=== PATIENT | female | born 1950 | race Caucasian/White ===

== ENCOUNTER 2018-01-05 19:05 | Emergency (ER) | payer MEDICARE, OTHER, SELFPAY ==
[2018-01-05] VITALS (46 sets, daily range): BP systolic 138–174; BP diastolic 52–83; PULSE 56–78; RESP 10–22; TEMP 36.6–36.7; O2SAT 92–99
--- NOTE | 2018-01-05 19:35 | ED.GENADUL_ITS ---
Disposition Clinical Impression: Epigastric abdominal pain, Back pain Disposition: HOME Condition: Improving Instructions: Back Pain (ED), Epigastric Pain (ED) Additional Instructions: Drink plenty of fluids and get plenty of rest. Avoid any alcohol or marijuana use for the next few days. Take Pepcid twice daily for the next 2 weeks. Follow-up with your primary care doctor within the next week. Return to the emergency department with any worsening or new concerning symptoms. Prescriptions: Famotidine [Pepcid] 20 mg PO BID 14 Days tab Medical Decision Making - Lab Data Laboratory Tests 01/05/18 01/05/18 01/05/18 19:15 19:15 22:30 WBC 8.16 RBC 4.60 Hgb 13.8 Hct 41.1 MCV 89.3 MCH 30.0 MCHC 33.6 RDW 12.5 Plt Count 274 MPV 10.7 Immature Gran % 0.2 Neutrophils % 54.3 Lymphocytes % 27.6 Monocytes % 10.7 Eosinophils % 6.0 Basophils % 1.2 Absolute Neutrophils 4.43 Absolute Lymphocytes 2.25 Absolute Monocytes 0.87 H Absolute Eosinophils 0.49 Absolute Basophils 0.10 Sodium 140 Potassium 4.1 Chloride 104 Carbon Dioxide 29.0 Anion Gap 7.0 BUN 13 Creatinine 1.02 Estimated GFR/1.73 m2 53.73 Glucose 100 Calcium 8.6 Magnesium 2.0 Total Bilirubin 0.3 AST 13 L ALT 24 Alkaline Phosphatase 76 Troponin I < 0.02 < 0.02 Total Protein 7.5 Albumin 3.7 Lipase 100 01/05/18 1912: 61 bpm[address] Sinus. No acute ST elevation or depression. - Radiology Data Radiology results: report reviewed, image reviewed Chest with IV contrast: Negative CT abdomen and pelvis with IV contrast: Negative - Medical Decision Making 1904 -- 67-year-old female with a history of hypertension who presents with epigastric and right upper quadrant pain with radiation up her chest to the right side of her neck and to her back since 1 hour prior to arrival. Denies shortness of breath, nausea, vomiting or dizziness. No relief with Mylanta. Pain currently 7/10. Patient admitted to drinking a bottle of champagne and smoking marijuana last night. Vitals within normal limits. She has tenderness to palpation in the epigastric and right upper quadrants. EKG negative for acute findings. Differential diagnosis includes gastritis, peptic ulcer disease, cholecystitis, WI, dissection. Will do a cardiac workup, LFTs, lipase, CT chest abdomen and pelvis and give a GI cocktail. 2019 -- patient feels much better. States her pain is currently 2/10. 2144 -- CT reviewed and negative. As patient had epigastric and right upper quadrant tenderness, I suspect more of an abdominal pathology rather than cardiac. Patient declines any admission to the hospital. She is agreeable to stay for a second troponin. Patient has been reading a book in the ED and appears in no acute distress. 2309 --second troponin negative. She had some O2 saturation readings in the low to mid 90s which were when patient was sleeping. When awake and talking 96- 97% on room air. Patient denies any chest or abdominal pain. Patient still admitting to some midline back pain states that is mild at 2/10. Patient states she would like to go home. She was again offered admission but declines. Reexamination of abdomen still noted mild epigastric and right upper quadrant tenderness. Discussed with patient that as her abdomen has been tender and improved after GI cocktail, her cardiac workup thus far is negative, and she drank a large amount of alcohol last night that she is not accustomed to , her symptoms could certainly be due to GI pathology such as gastritis and she is agreeable. HEART score low risk. Will give dose of Pepcid here. Patient instructed to follow-up with her primary care doctor in 1 week and return here if worse. History of Present Illness - General Chief complaint: Chest Pain Stated complaint: CHEST PAINS Time Seen by Provider: 01/05/18 19:06 Source: patient Mode of arrival: ambulatory Limitations: no limitations - History of Present Illness Initial comments: Patient is a 67-year-old female who presents to the ER with complaint of epigastric and right upper quadrant pain since 1 hour prior to arrival. States the symptoms started when she was sitting at home reading a book. States the pain feels intermittent, sharp with radiation to her back straight upper chest and into her neck. She denies any aggravating or alleviating factors. She took Mylanta without relief. States the pain is currently 7/10. She denies shortness of breath, nausea, vomiting or dizziness. Patient admits to drinking a bottle of champagne and smoking marijuana last night which is unusual for her. She does admit to a previous cardiac cath 3 years ago which was negative. She admits to a previous history of similar symptoms as today a few years ago which was due to low potassium. States she has been taking all her medications as directed including her spironolactone and Norvasc. She admits to mainly feeling tired at this time. - Related Data Timolol Maleate [TIMOLOL MAL 0.25%] 1 drp OP BID drp 05/21/16 Spironolactone 25 mg PO DAILY #90 tab-cap 10/08/16 Amlodipine Besylate 5 mg PO DAILY #90 tab-cap 01/14/17 PARoxetine [Paxil] 40 mg PO DAILY #90 tab-cap 06/20/17 Zaleplon [Sonata] 1 tab PO HS PRN #90 tab 06/24/17 Atorvastatin Calcium 10 mg PO DAILY #90 tab-cap 11/14/17 Famotidine [Pepcid] 20 mg PO BID 14 Days tab 01/05/18 Allergies Allergy/AdvReac Type Severity Reaction Status Date / Time losartan [Losartan] AdvReac Intermediate COUGH Unverified 01/05/18 19:27 oxycodone AdvReac Intermediate NAUSEA Unverified 01/05/18 19:27 lisinopril AdvReac Mild cough Unverified 01/05/18 19:27 Review of Systems Constitutional: denies: chills, fever Eyes: denies: eye pain ENT: denies: ear pain, dental pain Respiratory: denies: cough, shortness of breath Cardiovascular: chest pain. denies: dyspnea on exertion Gastrointestinal: abdominal pain. denies: nausea, vomiting, diarrhea Genitourinary: denies: urgency, dysuria, frequency Musculoskeletal: denies: back pain Skin: denies: rash, lesions Neurological: denies: headache, weakness, numbness Past Medical History - Past Medical History Medical history: hypertension Surgical history: hysterectomy, other (Bilateral total knee replacement, carpal tunnel release) Family history: no significant family history - Social History Smoking status: never smoker Alcohol use: occasionally Drug use: marijuana (Occasionally) General Exam - General Limitations: no limitations General appearance: alert, in no apparent distress - Eye Eye exam: Present: EOMI - Respiratory Respiratory exam: Present: normal lung sounds bilaterally. Absent: respiratory distress, wheezes, rales, rhonchi, stridor - Cardiovascular Cardiovascular Exam: Present: regular rate, normal rhythm. Absent: bradycardia , tachycardia - GI/Abdominal GI/Abdominal exam: Present: soft, tenderness (Moderate epigastric and right upper quadrant tenderness.), normal bowel sounds. Absent: distended, guarding, rebound, rigid - Neurological Exam Neurological exam: Present: alert, oriented X3 - Psychiatric Psychiatric exam: Present: normal affect - Skin Skin exam: Present: warm, dry, intact Course Vital Signs - 24 hr 01/05/18 19:05 Temperature 98.1 F Pulse 62 Respiratory 18 Rate Blood Pressure 174/60 Pulse Oximetry 96
[2018-01-05 19:51] LABS: Abs Immature Grans 0.02 k/cumm (0.0-0.09); Absolute Eosinophil Count 0.49 k/cumm (0.0-0.7); Absolute Lymphocyte Count 2.25 k/cumm (1.2-3.4); Absolute Monocyte Count 0.87 k/cumm (0.11-0.7); Absolute Neutrophil Count 4.43 k/cumm (1.2-6.7); Basophils % 1.2; HCT 41.1 % (36.0-46.0); HGB 13.8 g/dL (12.0-15.5); Immature Grans % 0.2; Lymphocytes % 27.6; Mean Corp. HGB Concentration 33.6 g/dL (32.0-36.0); Mean Corpuscular Volume 89.3 fL (80-95); Mean Platelet Volume 10.7 fL (8.0-11.0); Monocytes % 10.7; Neutrophils % 54.3; Platelet Count 274 x1000/uL (130-400); RBC Distribution Width 12.5 % (11.7-14.6); White Blood Cell Count 8.16 k/cumm (4.4-10.8)
[2018-01-05 20:00] LABS: ALT 24 U/L (12-78); AST 13 U/L (15-37); Albumin 3.7 g/dL (3.4-5.0); Alkaline Phosphatase 76 U/L (46-116); BUN 13 mg/dL (7-18); Bilirubin, Total 0.3 mg/dL (0.2-1.0); CREATININE 1.02 mg/dL (0.55-1.02); Calcium 8.6 mg/dL (8.5-10.1); Chloride 104 mmol/L (98-107); Estimated GFR 53.73 (mL/min/1.73m2); Glucose 100 mg/dL (70-100); Lipase 100 U/L (73-393); Potassium 4.1 mmol/L (3.5-5.1); Sodium 140 mmol/L (136-145); Total Protein 7.5 g/dL (6.4-8.2)
[2018-01-05 20:12] LABS: Troponin I < 0.02 ng/mL (0.00-0.06)
--- NOTE | 2018-01-05 20:25 | DI.RPTCT_ITS ---
SYMPTOM/DIAGNOSIS: EPIGASTRIC PAIN. RADIATION UP CHEST, R/O DISSECTION, CHOLECYSTITIS CT SCAN CHEST, ABDOMEN AND PELVIS: CT scan of the chest, abdomen and pelvis was performed during the uneventful administration of IV contrast. Images were obtained during the venous phase. Comparison is 01/24/16. The liver is unremarkable. The portal and superior mesenteric veins have a normal appearance. The gallbladder is negative. No biliary ductal dilatation is present. The pancreas, spleen and adrenal glands are unremarkable. The kidneys show normal and symmetric enhancement. No evidence of a solid renal mass or obstruction. The urinary bladder is intact. The patient appears to be status post hysterectomy. The aorta is of normal caliber. No aneurysmal dilatation is seen. No significant abdominal or pelvic adenopathy, ascites or pneumoperitoneum is present. The bowel is unremarkable. No evidence of an acute appendicitis present. There is a normal appendix present. Note is made of a fat containing left inguinal hernia. Degenerative changes are seen in the spine. IMPRESSION: No evidence of an acute abdomen. CT CHEST: The thoracic aorta shows mild atherosclerosis. It is of normal caliber. Heart size is within normal limits. No pericardial effusion seen. No significant mediastinal, hilar or axillary adenopathy is present. No pleural effusion or pneumothorax is identified. Mild dependent atelectatic changes are seen in the lung bases. No consolidating infiltrates are seen. The tracheobronchial tree is unremarkable. There is a 1.6 cm pneumatocele in the lingula. Degenerative changes are seen in the spine. There is a hemangioma in the T-10 vertebral body. IMPRESSION: No evidence of an acute chest.
[2018-01-05] MEDS: Normal Saline 500 ML IV (21:00)
[2018-01-05] MEDS: Omnipaque 350 MG/ML 100 ML BTL IJ (21:26)
--- NOTE | 2018-01-05 21:38 | DI.VRAD_ITS ---
EXAM: CT Chest With Intravenous Contrast EXAM DATE/TIME: 01/05/2018 8:27 PM CLINICAL HISTORY: 67 years old, female; Pain; Abdominal pain; Epigastric; Chest pain; Radiating; Patient HX: Epigastric pain radiating into chest; Additional info: R/O dissection, cholecystitis TECHNIQUE: Axial computed tomography images of the chest with intravenous contrast. Coronal and sagittal reformatted images were created and reviewed. COMPARISON: CT - ABD PELVIS WITH CONTRAST 2016-01-24 15:16 FINDINGS: Lungs: Normal. No consolidation. No masses. Pleural space: Normal. No pneumothorax. No pleural effusion. Heart: Normal. No cardiomegaly. No pericardial effusion. Aorta: Normal. No aortic aneurysm. Lymph nodes: Unremarkable. No enlarged lymph nodes. Bones/joints: Prominent T10 benign intraosseous bony hemangioma. Mild thoracic spondylosis. Soft tissues: Unremarkable. Other findings: 1.6 cm pneumatocele in the lingula. IMPRESSION: No acute findings. EXAM: CT Abdomen and Pelvis With Intravenous Contrast EXAM DATE/TIME: 01/05/2018 8:27 PM CLINICAL HISTORY: 67 years old, female; Pain; Abdominal pain; Epigastric; Chest pain; Radiating; Patient HX: Epigastric pain radiating into chest; Additional info: R/O dissection, cholecystitis TECHNIQUE: Axial computed tomography images of the abdomen and pelvis with intravenous contrast. Coronal and sagittal reformatted images were created and reviewed. COMPARISON: CT - ABD PELVIS WITH CONTRAST 2016-01-24 15:16 FINDINGS: Lower thorax: No acute findings. ABDOMEN: Liver: Normal. No mass. Gallbladder and bile ducts: Normal. No calcified stones. No ductal dilation. Pancreas: Normal. No ductal dilation. Spleen: Normal. No splenomegaly. Adrenals: Normal. No mass. Kidneys and ureters: Normal. No hydronephrosis. Stomach and bowel: Normal. No obstruction. No mucosal thickening. Appendix: The appendix appears normal. PELVIS: Bladder: Unremarkable as visualized. Reproductive: Stable hysterectomy. ABDOMEN and PELVIS: Intraperitoneal space: Normal. No free air. No significant fluid collection. Bones/joints: Prominent bony hemangioma in the left portion of L3. Moderate to severe multilevel degenerative changes including degenerative disc disease, spondylosis and facet degenerative changes. Grade 1 anterior non-spondylitic spondylolisthesis of L4 on L5. Soft tissues: Unremarkable. Vasculature: Normal. No abdominal aortic aneurysm. Lymph nodes: Normal. No enlarged lymph nodes. IMPRESSION: No acute findings. Dictated and Authenticated by: Enrrique Calabrese MD. Ordering:WILD PATE MD
[2018-01-05 23:01] LABS: Troponin I < 0.02 ng/mL (0.00-0.06)
[2018-01-05] MEDS: FAMOTIDINE 20 MG/50 ML BAG 100 MG IVPB (23:20)
== END 2018-01-05 23:45 | disposition home or self-care (01) ==
PROVIDERS: Emergency Provider Physician Assistant; PCP Emergency Medicine
DX: R10.13 Epigastric pain (principal); M54.9 Dorsalgia, unspecified; I10 Essential (primary) hypertension
CPT/HCPCS: 71260; 74177; 93005; 99285 ×2; 36415; 80053; 83690; 83735; 84484; 85025; 93010; J3490

== ENCOUNTER → 2018-03-05 13:10 | Outpatient (BNVA) | payer MEDICARE, OTHER, SELFPAY | PROVIDERS: PCP Emergency Medicine; Referring Provider Emergency Medicine; Visit Provider Orthopaedic Surgery | DX: M65.312 Trigger thumb, left thumb (principal) | CPT/HCPCS: 99214 ==

== ENCOUNTER 2018-03-11 13:16 | Day surgery (SDC) | payer MEDICARE, OTHER, SELFPAY ==
[2018-03-11 13:26] VITALS: BP 121/62; PULSE 59; RESP 16; TEMP 37.2; O2SAT 94
[2018-03-11] MEDS: Lidocaine 2% Pres-Free 5 ML VIAL (14:43)
--- NOTE | 2018-03-11 15:05 | PDOC.DSDIS_ITS ---
Discharge Plan Disposition Patient Disposition: HOME Condition: Good Discharge Details Reason For Visit: (L) TRIGGER THUMB Attending Provider: Rodolfo Dumas Primary Care Provider: Adan Díaz Home Meds and New Rx's Prescriptions: New hydrocodone-acetaminophen 5-325 mg tablet 1 tab PO Q6H PRN (Reason: pain) Qty: 7 RF: 0 Continue timolol maleate 5 ML gel forming solution 1 drp Ophthalmic BID RF: 0 zaleplon 10 MG capsule 1 tab PO HS PRN Qty: 90 RF: 4 Atorvastatin Calcium 10 MG tablet 10 mg PO DAILY Qty: 90 RF: 3 spironolactone 25 mg tablet 25 mg PO DAILY Qty: 90 RF: 3 amlodipine 5 mg tablet 5 mg PO DAILY Qty: 90 RF: 3 paroxetine HCl 40 mg tablet 40 mg PO DAILY Qty: 90 RF: 3 Discharge Instructions Additional Instructions: Bend and straighten L thumb 10 times/hour when awake to prevent stiffness and swelling. Remove dressings, shower and get incision wet in 72 hours. May leave incision uncovered when it is dry and sealed. Follow up in 's office in 10-14 days. Referrals: Rodolfo Dumas MD [ [facility] STAFF PHYSICIAN] - (F/U in 10-14 days) Activity:: Activity as Tolerated Remove Dressings/Wound Care:: 72 hours Shower/Bathe:: 72 hours Diet:: As Tolerated Discharge Orders Discharge Orders: Discharge Order (Routine); Ordered 03/11/18 Ordered By: Rodolfo Dumas DS: Diagnosis Discharge Diagnosis (1) Trigger thumb of left hand: Start date: 03/11/18 Start time: 15:05 Status: Acute
--- NOTE | 2018-03-13 09:25 | ROE_ITS ---
DATE OF PROCEDURE: March 11, 2018 PREOPERATIVE DIAGNOSIS: Left trigger thumb. POSTOPERATIVE DIAGNOSIS: Same. PROCEDURE: Tendon sheath incision for left trigger thumb release. ANESTHESIA: Local infiltration 2% Xylocaine solution and 0.5% Marcaine with epinephrine solution. SURGEON: Rodolfo Dumas M.D. INDICATIONS: This is a 67-year-old white female with almost a one year history of painful locking of her left thumb. She said when it first began it was intermittent, now it's constant and much more p ainful. Trigger thumb release was recommended to alleviate her symptoms and restore good function to her left thumb. The risks and complications of the procedure were explained to the patient in detai l preoperatively. PROCEDURE: The patient was taken to the procedure room on 03/11/18. She was placed supine on the op erating table. The left hand was prepped and draped free in the usual sterile fashion. I infiltrate d over the proximal flexion crease of the left thumb with 2% Xylocaine solution. I then made an inci shobha in line with the proximal flexion crease of the left thumb, centered over the flexor tendon suresh th of the thumb. The incision was about 2.5 cm in length. The incision was carried to the subcu. B harjit-tipped Littler scissors were then used to mobilize the soft tissues and digital nerves away from the proximal soy of the flexor sheath of the left thumb. Retractors were inserted under direct v ision. I incised the proximal soy in the palmar midline and then I completed the release of the A -1 proximal soy with Littler scissors. The patient was then asked to actively flex and extend her left thumb. She was now able to flex and extend her left thumb fully without any locking or catchin g. The wound was irrigated with saline solution and the wound margins were infiltrated with 0.5% Mar blane with an epinephrine solution. The skin edges were loosely approximated with two interrupted #4 -0 nylon sutures. A light pressure dressing was applied. The patient tolerated the procedure well a nd was discharged to the Day Surgery Unit in good condition. The patient was discharged home from the Day Surgery Unit with instructions to keep the dressing jarett n and dry for 48 hours. She was encouraged to flex and extend her left thumb ten times an hour while awake to prevent stiffness and swelling. She may remove her dressings, shower and get her incision wet after 48 hours. She may leave the incision uncovered when it's dry and sealed. She can use her left hand as much as discomfort allows. She was given a prescription for breakthrough pain of Hydroc odone with APAP 5/325 one tablet every six hours as needed. She will take plain Tylenol for mild charles n. She will follow-up in my office in two weeks for suture removal.
== END 2018-03-11 13:43 | disposition home or self-care (01) ==
PROVIDERS: PCP Emergency Medicine; Visit Provider Orthopaedic Surgery
PROC: (CPT 26055; principal; 2018-03-11 14:00)
DX: M65.312 Trigger thumb, left thumb (principal)
CPT/HCPCS: 26055

== ENCOUNTER → 2018-03-25 09:11 | Outpatient (BNVA) | payer MEDICARE, OTHER, SELFPAY | PROVIDERS: PCP Emergency Medicine; Referring Provider Emergency Medicine; Visit Provider Orthopaedic Surgery | DX: M65.312 Trigger thumb, left thumb (principal); Z47.89 Encounter for other orthopedic aftercare ==

== ENCOUNTER 2018-05-16 09:40 | Emergency (ER) | payer MEDICARE, OTHER, SELFPAY ==
[2018-05-16] VITALS (22 sets, daily range): BP systolic 141–175; BP diastolic 59–73; PULSE 73–90; RESP 10–22; TEMP 38.4–39; O2SAT 91–97
--- NOTE | 2018-05-16 10:17 | W.ED.GENAD ---
Discharge Plan Disposition Patient Disposition: HOME Discharge Details Chief Complaint: Cellulitis Clinical Impression: Cellulitis of face Primary Care Provider: Adan Díaz ED Provider: Yony Beckford Home Meds and New Rx's Prescriptions: New doxycycline hyclate 100 mg tablet 100 mg PO BID Qty: 19 RF: 0 Continued timolol maleate 5 ML gel forming solution 1 drp Ophthalmic BID RF: 0 zaleplon 10 MG capsule 1 tab PO HS PRN Qty: 90 RF: 4 Atorvastatin Calcium 10 MG tablet 10 mg PO DAILY Qty: 90 RF: 3 spironolactone 25 mg tablet 25 mg PO DAILY Qty: 90 RF: 3 amlodipine 5 mg tablet 5 mg PO DAILY Qty: 90 RF: 3 paroxetine HCl 40 mg tablet 40 mg PO DAILY Qty: 90 RF: 3 No Action amoxicillin-pot clavulanate [Augmentin] 875-125 mg tablet 1 tab PO Q12H Qty: 20 RF: 0 Discharge Instructions Instructions: Cellulitis (ED) Additional Instructions: Please take the full course of antibiotics as prescribed. Your next dose is this evening. Please contact your primary care physician to arrange follow-up. You should have close follow-up next week. Please also be sure to discuss your elevated blood pressure today with your doctor. Return to the ER for any worsening or new concerning symptoms. Referrals: Adan Díaz, [Primary Care Provider] - Discharge Data Discharge Date/Time-TO BE ENTERED AT DEPARTURE: 05/16/18 12:57 Medical Decision Making 10:20 --67-year-old female here with painful inflammation of the left face worsening over the past 3 days. Febrile. Chronic murmur. Patient also with erythema of her left TM. She does have some tenderness postauricular on the left with no tenderness over her mastoid sinus. Concern for facial cellulititis. Will give ceftriaxone 1g IV. Will give IVF bolus. Plan to send blood cultures. -- Labs reviewed. Plan to continue coverage with doxy/keflex. Disposition decision was made weighing the risks and benefits of hospitalization versus outpatient treatment, the risk for further decompensation, and the patient's wishes. The patient was stable and requested discharge. Prior to discharge, my usual and customary return precautions were reviewed with the patient - this included follow-up instructions and reason to return to the emergency department if condition worsens, does not improve as expected, or other new concerns arise. HPI General Mode of arrival: ambulatory. Date/Time Provider Initiated Documentation: 05/16/18 09:50. Limitations to Documentation: no limitations. Information obtained by: patient. HPI Narrative: 67-year-old female presents with chief complaint of left facial pain. Patient notes that 3 days ago she started to experience pain in her left face around her buddhist. Pain is persisted and worsened progressively over the past 3 days. Today she noticed that her face was little bit red. Redness is worsened today. Pain is spread from her left buddhist to her left cheek and also now minimally on the right side of her face. She also has some pain around her left ear and posterior auricular. She has associated fever today. Of note, patient recently traveled to [facility]. She did summon some fresh water there. She returned from [facility] about 2 weeks ago and has been asymptomatic until 3 days ago when this inflammation started. She recalls no insect bites in [facility]. Related Data Home Medications Medication Instructions Recorded Confirmed timolol maleate 1 drp OPHTHALMIC BID drp 05/21/16 05/18/18 zaleplon 1 tab PO HS PRN #90 tab 06/24/17 05/18/18 amlodipine 5 mg tablet 5 mg PO DAILY #90 tab-cap 03/11/18 05/18/18 paroxetine 40 mg tablet 40 mg PO DAILY #90 tab-cap 03/11/18 05/18/18 spironolactone 25 mg tablet 25 mg PO DAILY #90 tab-cap 03/11/18 05/18/18 doxycycline hyclate 100 mg PO BID #19 tab 05/16/18 05/18/18 amoxicillin 875 mg-potassium 1 tab PO Q12H #20 tab 05/18/18 05/18/18 clavulanate 125 mg tablet Previous Rx's Medication Instructions Recorded zaleplon 1 tab PO HS PRN #90 tab 06/24/17 amlodipine 5 mg tablet 5 mg PO DAILY #90 tab-cap 03/11/18 paroxetine 40 mg tablet 40 mg PO DAILY #90 tab-cap 03/11/18 spironolactone 25 mg tablet 25 mg PO DAILY #90 tab-cap 03/11/18 doxycycline hyclate 100 mg PO BID #19 tab 05/16/18 amoxicillin 875 mg-potassium 1 tab PO Q12H #20 tab 05/18/18 clavulanate 125 mg tablet Allergies Allergy/AdvReac Type Severity Reaction Status Date / Time losartan [Losartan] AdvReac Intermediate COUGH Verified 05/18/18 10:14 oxycodone AdvReac Intermediate NAUSEA Verified 05/18/18 10:14 lisinopril AdvReac Mild cough Verified 05/18/18 10:14 General Stated Complaint: Cellulitis WINDY: 2 Review of Systems Constitutional Reports fatigue and Reports fever(s) ENT Denies abnormal hearing, Denies dental pain, Denies dysphagia, Denies ear discharge, Denies otalgia, Denies mouth pain, Denies nasal congestion, Denies nasal discharge, Denies neck pain, Denies nose pain, Denies odynophagia, Denies sore throat and Denies throat swelling Gastrointestinal Denies dysphagia and Denies odynophagia Musculoskeletal Denies neck pain Integumentary/Breasts Reports as per HPI Neurologic Denies abnormal hearing Endocrine Reports fatigue Allergic/Immunologic Denies throat swelling PFSH Medical History Hyperlipidemia (Chronic) Hypertension (Chronic) Surgical History Abdominal hysterectomy Arthroplasty of knee EGD - MAC Meniscectomy (01/18/08) Replacement of total knee joint Family History Brother CAD (coronary artery disease) Neoplasm Grandfather Neoplasm Grandmother Neoplasm Social History Smoking/Tobacco Use Status: Never Exam Const General: cooperative and no acute distress [facility] Head: normocephalic and atraumatic Ears: TM normal on the right, mastoids normal and TM abnormal erythematous on the left General nose exam: external nose normal and nares normal Face and sinus: erythema on the left (buddhist and cheek ) Mouth: moist mucous membranes Throat: posterior oropharynx normal Eyes Conjunctivae: normal conjunctivae Sclera: normal sclerae EOM: EOM intact bilaterally Neck Neck: trachea midline and supple Resp Auscultation: clear to auscultation bilaterally, no rales, no rhonchi and no wheezes Cardio Jugular venous pressure: no JVD Rate: regular rate Rhythm: regular rhythm Heart Sounds: murmur Skin General skin exam: no rashes or lesions noted Neuro General: alert, awake, oriented x3 and tone normal Extrem General: no edema Psych Appearance: grossly normal Mental Status: mental status grossly normal Speech and Movement: speech and movement normal Course Vital Signs Temperature 39 C H 05/16/18 09:48 Pulse 90 05/16/18 09:48 Respiratory Rate 18 05/16/18 09:48 Blood Pressure 175/73 H 05/16/18 09:48 Pulse Oximetry 95 05/16/18 09:48 Temperature 39 C H 05/16/18 09:48 Temperature Source Temporal Artery Scan 05/16/18 09:48 Pulse 90 05/16/18 09:48 Respiratory Rate 18 05/16/18 09:48 Respiratory Effort Non-Labored 05/16/18 09:52 Blood Pressure 175/73 H 05/16/18 09:48 Blood Pressure Position Sitting 05/16/18 09:48 Pulse Oximetry 95 05/16/18 09:48 Oxygen Delivery Method Room Air 05/16/18 09:48 Oxygen Flow Rate 0 05/16/18 09:48 Pain Level 8 05/16/18 09:48
--- NOTE | 2018-05-16 10:20 | ED.GENADUL_ITS ---
Discharge Plan Disposition Patient Disposition: HOME Discharge Details Chief Complaint: Cellulitis Clinical Impression: Cellulitis of face Primary Care Provider: Adan Díaz ED Provider: Yony Beckford Home Meds and New Rx's Prescriptions: New doxycycline hyclate 100 mg tablet 100 mg PO BID Qty: 19 RF: 0 Continued timolol maleate 5 ML gel forming solution 1 drp Ophthalmic BID RF: 0 zaleplon 10 MG capsule 1 tab PO HS PRN Qty: 90 RF: 4 Atorvastatin Calcium 10 MG tablet 10 mg PO DAILY Qty: 90 RF: 3 spironolactone 25 mg tablet 25 mg PO DAILY Qty: 90 RF: 3 amlodipine 5 mg tablet 5 mg PO DAILY Qty: 90 RF: 3 paroxetine HCl 40 mg tablet 40 mg PO DAILY Qty: 90 RF: 3 No Action amoxicillin-pot clavulanate [Augmentin] 875-125 mg tablet 1 tab PO Q12H Qty: 20 RF: 0 Discharge Instructions Instructions: Cellulitis (ED) Additional Instructions: Please take the full course of antibiotics as prescribed. Your next dose is this evening. Please contact your primary care physician to arrange follow-up. You should have close follow-up next week. Please also be sure to discuss your elevated blood pressure today with your doctor. Return to the ER for any worsening or new concerning symptoms. Referrals: Adan Díaz DO [Primary Care Provider] - Discharge Data Discharge Date/Time-TO BE ENTERED AT DEPARTURE: 05/16/18 12:57 Medical Decision Making 10:20 --67-year-old female here with painful inflammation of the left face worsening over the past 3 days. Febrile. Chronic murmur. Patient also with erythema of her left TM. She does have some tenderness postauricular on the left with no tenderness over her mastoid sinus. Concern for facial cellulititis. Will give ceftriaxone 1g IV. Will give IVF bolus. Plan to send blood cultures. -- Labs reviewed. Plan to continue coverage with doxy/keflex. Disposition decision was made weighing the risks and benefits of hospitalization versus outpatient treatment, the risk for further decompensation, and the pat ient's wishes. The patient was stable and requested discharge. Prior to discharge, my usual and customary return precautions were reviewed with the patient - this included follow-up instructions and reason to return to the emergency department if condition worsens, does not improve as expected, or other new concerns arise. HPI General Mode of arrival: ambulatory . Date/Time Provider Initiated Documentation: 05/16/18 09:50 . Limitations to Documentation: no limitations . Information obtained by: patient . HPI Narrative: 67-year-old female presents with chief complaint of left facial pain. Patient notes that 3 days ago she started to experience pain in her left face around her adventist. Pain is persisted and worsened progressively over the past 3 days. Today she noticed that her face was little bit red. Redness is worsened today. Pain is spread from her left adventist to her left cheek and also now minimally on the right side of her face. She also has some pain around her left ear and posterior auricular. She has associated fever today. Of note, patient recently traveled to [facility]. She did summon some fresh water there. She returned from [facility] about 2 weeks ago and has been asymptomatic until 3 days ago when this inflammation started. She recalls no insect bites in [facility]. Related Data Home Medications Medication Instructions Recorded Confirmed timolol maleate 1 drp OPHTHALMIC BID drp 05/21/16 05/18/18 zaleplon 1 tab PO HS PRN #90 tab 06/24/17 05/18/18 amlodipine 5 mg tablet 5 mg PO DAILY #90 tab-cap 03/11/18 05/18/18 paroxetine 40 mg tablet 40 mg PO DAILY #90 tab-cap 03/11/18 05/18/18 spironolactone 25 mg tablet 25 mg PO DAILY #90 tab-cap 03/11/18 05/18/18 doxycycline hyclate 100 mg PO BID #19 tab 05/16/18 05/18/18 amoxicillin 875 mg-potassium 1 tab PO Q12H #20 tab 05/18/18 05/18/18 clavulanate 125 mg tablet Previous Rx's Medication Instructions Recorded zaleplon 1 tab PO HS PRN #90 tab 06/24/17 amlodipine 5 mg tablet 5 mg PO DAILY #90 tab-cap 03/11/18 paroxetine 40 mg tablet 40 mg PO DAILY #90 tab-cap 03/11/18 spironolactone 25 mg tablet 25 mg PO DAILY #90 tab-cap 03/11/18 doxycycline hyclate 100 mg PO BID #19 tab 05/16/18 amoxicillin 875 mg-potassium 1 tab PO Q12H #20 tab 05/18/18 clavulanate 125 mg tablet Allergies Allergy/AdvReac Type Severity Reaction Status Date / Time losartan [Losartan] AdvReac Intermediate COUGH Verified 05/18/18 10:14 oxycodone AdvReac Intermediate NAUSEA Verified 05/18/18 10:14 lisinopril AdvReac Mild cough Verified 05/18/18 10:14 General Stated Complaint: Cellulitis WINDY: 2 Review of Systems Constitutional Reports fatigue and Reports fever(s) ENT Denies abnormal hearing, Denies dental pain, Denies dysphagia, Denies ear discharge, Denies otalgia, Denies mouth pain, Denies nasal congestion, Denies nasal discharge, Denies neck pain, Denies nose pain, Denies odynophagia, Denies sore throat and Denies throat swelling Gastrointestinal Denies dysphagia and Denies odynophagia Musculoskeletal Denies neck pain Integumentary/Breasts Reports as per HPI Neurologic Denies abnormal hearing Endocrine Reports fatigue Allergic/Immunologic Denies throat swelling PFSH Medical History Hyperlipidemia (Chronic) Hypertension (Chronic) Surgical History Abdominal hysterectomy Arthroplasty of knee EGD - MAC Meniscectomy (01/18/08) Replacement of total knee joint Family History Brother CAD (coronary artery disease) Neoplasm Grandfather Neoplasm Grandmother Neoplasm Social History Smoking/Tobacco Use Status: Never Exam Const General: cooperative and no acute distress [facility] Head: normocephalic and atraumatic Ears: TM normal on the right, mastoids normal and TM abnormal erythematous on the left General nose exam: external nose normal and nares normal Face and sinus: erythema on the left (adventist and cheek ) Mouth: moist mucous membranes Throat: posterior oropharynx normal Eyes Conjunctivae: normal conjunctivae Sclera: normal sclerae EOM: EOM intact bilaterally Neck Neck: trachea midline and supple Resp Auscultation: clear to auscultation bilaterally, no rales, no rhonchi and no wheezes Cardio Jugular venous pressure: no JVD Rate: regular rate Rhythm: regular rhythm Heart Sounds: murmur Skin General skin exam: no rashes or lesions noted Neuro General: alert, awake, oriented x3 and tone normal Extrem General: no edema Psych Appearance: grossly normal Mental Status: mental status grossly normal Speech and Movement: speech and movement normal Course Vital Signs Temperature 39 C H 05/16/18 09:48 Pulse 90 05/16/18 09:48 Respiratory Rate 18 05/16/18 09:48 Blood Pressure 175/73 H 05/16/18 09:48 Pulse Oximetry 95 05/16/18 09:48 Temperature 39 C H 05/16/18 09:48 Temperature Source Temporal Artery Scan 05/16/18 09:48 Pulse 90 05/16/18 09:48 Respiratory Rate 18 05/16/18 09:48 Respiratory Effort Non-Labored 05/16/18 09:52 Blood Pressure 175/73 H 05/16/18 09:48 Blood Pressure Position Sitting 05/16/18 09:48 Pulse Oximetry 95 05/16/18 09:48 Oxygen Delivery Method Room Air 05/16/18 09:48 Oxygen Flow Rate 0 05/16/18 09:48 Pain Level 8 05/16/18 09:48
[2018-05-16 10:27] LABS: Abs Immature Grans 0.03 k/cumm (0.0-0.09); Absolute Basophil Count 0.03 k/cumm (0.0-0.2); Absolute Eosinophil Count 0.22 k/cumm (0.0-0.7); Absolute Lymphocyte Count 0.81 k/cumm (1.2-3.4); Absolute Monocyte Count 0.79 k/cumm (0.11-0.7); Absolute Neutrophil Count 13.03 k/cumm (1.2-6.7); Basophils % 0.2; Eosinophils % 1.5; HCT 42.7 % (36.0-46.0); HGB 14.6 g/dL (12.0-15.5); Immature Grans % 0.2; Lymphocytes % 5.4; Mean Corp. HGB Concentration 34.2 g/dL (32.0-36.0); Mean Corpuscular Hemoglobin 30.6 pg (27.0-33.0); Mean Corpuscular Volume 89.5 fL (80-95); Mean Platelet Volume 10.1 fL (8.0-11.0); Monocytes % 5.3; Neutrophils % 87.4; Platelet Count 263 x1000/uL (130-400); RBC 4.77 m/cumm (4.00-5.20); RBC Distribution Width 12.1 % (11.7-14.6); White Blood Cell Count 14.91 k/cumm (4.4-10.8)
[2018-05-16] MEDS: Lactated Ringers 1,000 ML 1000 ML IV (10:29)
[2018-05-16] MEDS: Acetaminophen 325 MG TAB 650 MG PO (10:30)
[2018-05-16 10:45] LABS: ALT 26 U/L (12-78); AST 15 U/L (15-37); Albumin 2.7 g/dL (3.4-5.0); Alkaline Phosphatase 51 U/L (46-116); Anion Gap 10.4 mmol/L (3-11); BUN 14 mg/dL (7-18); Bilirubin, Total 0.8 mg/dL (0.2-1.0); CO2 28.6 mmol/L (21.0-32.0); CREATININE 1.01 mg/dL (0.55-1.02); Calcium 8.9 mg/dL (8.5-10.1); Chloride 99 mmol/L (98-107); Estimated GFR 54.35 (mL/min/1.73m2); Glucose 126 mg/dL (70-100); Potassium 3.9 mmol/L (3.5-5.1); Sodium 138 mmol/L (136-145); Total Protein 8.1 g/dL (6.4-8.2)
[2018-05-16] MEDS: Normal Saline Flush 10 ML SYR IVP (10:52)
[2018-05-16] MEDS: Doxycycline Hyclate 100 MG CAP PO (12:42)
== END 2018-05-16 12:57 | disposition home or self-care (01) ==
PROVIDERS: Emergency Provider Student in an Organized Health Care Education/Training Program; PCP Emergency Medicine
DX: L03.211 Cellulitis of face (principal); I10 Essential (primary) hypertension
CPT/HCPCS: 80053; 87040; 96361; 96365; 99284; 85025; J0696

== ENCOUNTER 2018-06-07 10:25 | Emergency (ER) | payer MEDICARE, OTHER, SELFPAY ==
[2018-06-07 10:38] VITALS: BP 167/63; PULSE 84; RESP 18; TEMP 36.8; O2SAT 97
--- NOTE | 2018-06-07 11:26 | ED.GENADUL_ITS ---
Discharge Plan Disposition Patient Disposition: HOME Condition: Fair Discharge Details Chief Complaint: RespSymp Clinical Impression: Strep throat Primary Care Provider: Adan Díaz ED Provider: Zelda Figueroa Home Meds and New Rx's Prescriptions: New penicillin V potassium 500 mg tablet 500 mg PO BID 10 Days Qty: 20 RF: 0 Continued timolol maleate 5 ML gel forming solution 1 drp Ophthalmic BID RF: 0 Atorvastatin Calcium 10 MG tablet 10 mg PO DAILY Qty: 90 RF: 3 spironolactone 25 mg tablet 25 mg PO DAILY Qty: 90 RF: 3 amlodipine 5 mg tablet 5 mg PO DAILY Qty: 90 RF: 3 paroxetine HCl 40 mg tablet 40 mg PO DAILY Qty: 90 RF: 3 Discharge Instructions Instructions: Pharyngitis (ED) Additional Instructions: Encourage hydration. Tylenol and/or ibuprofen as needed for discomfort. Please take antibiotics as prescribed, even if symptoms improve please take the entire course. He may try lozenges, honey to help the sore throat. If you develop difficulty swallowing, increased pain, inability to stay hydrated or other new/worsening symptoms please seek care urgently once again. Otherwise, please follow-up with primary care in 1 week if not completely improved. Referrals: Adan Díaz, [Primary Care Provider] - Discharge Data Discharge Date/Time-TO BE ENTERED AT DEPARTURE: 06/07/18 12:24 Medical Decision Making Patient is a 67-year-old female presenting today with chief complaint of sore throat for 4 days. She reports that symptoms have progressively been worsening. Reports she had intermittent chills and a low-grade fever with T-max of 99 ?F per patient. Has had pain with swallowing but reports she has been making effort to stay hydrated. Is not tried any Tylenol or ibuprofen to help with discomfort. Has intermittently taken DayQuil with minimal relief. Patient has been around multiple sick contacts. Was recently on antibiotics for cellulitis and sinusitis. Is unclear what antibiotic she was placed on. Reports that she finished antibiotics on 05/26/2018. Review of chart shows the patient was placed on Keflex and doxycycline. On exam, patient's posterior oropharynx is noted to be erythematous and swollen. Uvula is midline. No signs of trismus. No swelling of the tongue. Patient does have palpable lymphadenopathy anteriorly. Her rapid strep was positive. Patient is not tachycardic, febrile. And treat the patient for Streptococcus pharyngitis. Patient was placed on penicillin. Discussed this plan with the patient. Encouraged hydration. Advised Tylenol and/or ibuprofen as needed for discomfort. Advise follow-up with primary care in 1 week if not improving. We discussed new/worsening symptoms please seek care urgently once again. All of her questions and concerns were addressed and she is in agreement with this plan. HPI General Mode of arrival: ambulatory . Date/Time Provider Initiated Documentation: 06/07/18 11:12 . Limitations to Documentation: no limitations . Information obtained by: patient and family . History of Present Illness 67 year old F presents to the emergency department with the chief complaint of sore throat, described as moderate, Quality is described as burning, and is localized to the neck (sore throat). Patient reports no radiation. Patien t started experiencing this day(s) (4) and it has been constant. No relieving factors improve symptom(s), Eating worsens symptoms . Patient notes denies chest pain, cough, diaphoresis, fever/chills, headaches, loss of appetite, nausea/vomiting, rash and shortness of breath. Patient did receive the following treatments prior to arrival, none Related Data Home Medications Medication Instructions Recorded Confirmed timolol maleate 1 drp OPHTHALMIC BID drp 05/21/16 06/07/18 amlodipine 5 mg tablet 5 mg PO DAILY #90 tab-cap 18 06/07/18 paroxetine 40 mg tablet 40 mg PO DAILY #90 tab-cap 18 06/07/18 spironolactone 25 mg tablet 25 mg PO DAILY #90 tab-cap 03/11/18 06/07/18 penicillin V potassium 500 mg PO BID 10 Days #20 tab 06/07/18 Previous Rx's Medication Instructions Recorded amlodipine 5 mg tablet 5 mg PO DAILY #90 tab-cap 03/11/18 paroxetine 40 mg tablet 40 mg PO DAILY #90 tab-cap 03/11/18 spironolactone 25 mg tablet 25 mg PO DAILY #90 tab-cap 03/11/18 penicillin V potassium 500 mg PO BID 10 Days #20 tab 06/07/18 Allergies Allergy/AdvReac Type Severity Reaction Status Date / Time losartan [Losartan] AdvReac Intermediate COUGH Verified 06/07/18 10:41 oxycodone AdvReac Intermediate NAUSEA Verified 06/07/18 10:41 lisinopril AdvReac Mild cough Verified 06/07/18 10:41 General Stated Complaint: RespSymp WINDY: 4 Review of Systems Constitutional Reports as per HPI and Denies headache(s) Eyes Reports as per HPI, Denies eye discharge and Denies irritation ENT Reports as per HPI, Denies dizziness, Denies ear discharge, Denies otalgia, Denies headache(s), Denies hoarseness, Denies lip swelling, Reports nasal congestion, Reports nasal discharge, Denies sinus pain, Denies sinus pressure, Reports sore throat and Denies throat swelling Cardiovascular Reports as per HPI, Denies chest pain and Denies dyspnea Respiratory Reports as per HPI, Denies cough, Denies dyspnea, Denies stridor and Denies wheezing Gastrointestinal Reports as per HPI, Denies abdominal pain, Denies change in bowel habits, Denies nausea and Denies vomiting Integumentary/Breasts Reports as per HPI and Denies rash Neurologic Denies dizziness and Denies headache(s) Allergic/Immunologic Denies lip swelling, Denies throat swelling and Denies wheezing REPLACED BY [facility] Medical History Hyperlipidemia (Chronic) Hypertension (Chronic) Surgical History Abdominal hysterectomy Arthroplasty of knee EGD - MAC Meniscectomy (01/18/08) Replacement of total knee joint Social History Smoking/Tobacco Use Status: Never Exam Const General: cooperative, healthy appearing, comfortable, no acute distress, well developed and well groomed Nutritional Appearance: average body habitus and well nourished Orientation: alert and awake [facility] Head: normal to inspection, normocephalic and atraumatic Ears: hearing grossly normal bilaterally, external ears normal and TM's normal bilaterally General nose exam: external nose normal and nares normal Face and sinus: normal facial exam, sinuses nontender and face symmetric Mouth: oral mucosae normal, lip normal, tongue normal, oropharynx normal and moist mucous membranes Teeth and gingiva: dentition normal Throat: posterior oropharynx abnormal (erythema, white exudate), tonsils normal, uvula midline, uvula not displaced and no uvular edema Eyes General: appearance normal, both eyes and all related structures Neck Neck: normal visual inspection, full ROM, no meningeal signs and lymphadenopathy Resp Effort & Inspection: normal respiratory effort, able to speak in complete sentences and no respiratory distress Auscultation: clear to auscultation bilaterally, no rales, no rhonchi and no wheezes Cardio Rate: regular rate Rhythm: regular rhythm Heart Sounds: S1 normal and S2 normal Skin General skin exam: no rashes or lesions noted Neuro General: alert and awake Cognition: normal cognition Speech: speech normal Gait: normal gait Psych Appearance: grossly normal and well kempt Mental Status: mental status grossly normal Speech and Movement: speech and movement normal Course Vital Signs Temperature 36.8 C 06/07/18 10:38 Pulse 84 06/07/18 10:38 Respiratory Rate 18 06/07/18 10:38 Blood Pressure 167/63 H 06/07/18 10:38 Pulse Oximetry 97 06/07/18 10:38 Temperature 36.8 C 06/07/18 10:38 Temperature Source Temporal Artery Scan 06/07/18 10:38 Pulse 84 06/07/18 10:38 Respiratory Rate 18 06/07/18 10:38 Blood Pressure 167/63 H 06/07/18 10:38 Blood Pressure Position Sitting 06/07/18 10:38 Pulse Oximetry 97 06/07/18 10:38 Oxygen Delivery Method Room Air 06/07/18 10:38 Oxygen Flow Rate 0 06/07/18 10:38 Pain Level 4 06/07/18 10:38 Comment 06/07/18 10:38 Lab/Test Results Lab/Test Results: POC Strep Test-[facility](Rapid) Start: 06/07/18 10:59 Freq: .Rapid Strep Test Status: Active Protocol: Document 06/07/18 10:59 MP (Rec: 06/07/18 10:59 MP [id number]) Strep test-[facility](Rapid)-POC POC-Strep test-[facility] (Rapid) Positive POC-Strep test-[facility] (Rapid) Positive
== END 2018-06-07 12:24 | disposition home or self-care (01) ==
PROVIDERS: Emergency Provider Physician Assistant; PCP Emergency Medicine
DX: J02.0 Streptococcal pharyngitis (principal); I10 Essential (primary) hypertension
CPT/HCPCS: 87880; 99283

== ENCOUNTER → 2018-06-30 09:32 | Outpatient (BNVA) | payer MEDICARE, OTHER, SELFPAY | PROVIDERS: PCP Emergency Medicine; Referring Provider Emergency Medicine; Visit Provider Orthopaedic Surgery | DX: G56.01 Carpal tunnel syndrome, right upper limb (principal) | CPT/HCPCS: 99211; 99213 ==

== ENCOUNTER 2018-07-17 07:50 | Outpatient (CLI) | payer MEDICARE, OTHER, SELFPAY ==
--- NOTE | 2018-07-17 07:55 | W.PREOPHP ---
Assessment and Plan (1) Carpal tunnel syndrome: Current visit: Yes Status: Acute Plan: Patient does have fake nails in place which she plans to remove prior to surgery. Discussed surgery including surgical technique, pertinent anatomy, recovery process, benefits and risks including but not limited to risk of infection, blood clot, damage to soft tissue/nerve/blood vessels with patient in detail. After discussion patient gives verbal understanding of risks and elected to proceed with scheduling surgery. Patient had opportunity to ask questions answered to her satisfaction. Patient plans to undergo right carpal tunnel release followed by left carpal tunnel release in a few weeks. She will contact office if issues arise, patient will continue to be scheduled for right ECTR with Dr. Dumas on 07/20/18. Qualifiers: Laterality: bilateral Qualified Code(s): G56.03 - Carpal tunnel syndrome, bilateral upper limbs Ms. Lee is a 67-year-old [id number] female who presents to clinic for preoperative appointment for scheduled right ECTR with Dr. Dumas on 07/20/18. Patient is status post bilateral open carpal tunnel releases approximately 25 years ago in [place]. In 2012 patient started to have bilateral numbness and tingling of her index and middle fingers. She was sent for nerve conduction studies which as per Dr. Dumas's note on 01/27/13 showed prolonged latency of 5.6 seconds on the right wrist and latency of 4.6 on the left which is within upper limits of normal. At that time patient was planning on undergoing carpal tunnel release but did not schedule surgery since her symptoms resolved. Patient reports since that time she had intermittent symptoms but around 2017 she began to have constant numbness, tingling and cold feelings of her index and middle fingers bilaterally. 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 Patient denies symptoms of weakness or loss of dexterity. Symptoms do not currently wake her up at night and she has not tried nighttime bracing. Due to patient's recurrence of symptoms following history of status post bilateral open carpal tunnel and positive nerve conduction studies from 2012 patient was offered and elected to proceed with surgical intervention. Pertinent Surgical Information In May 2018 patient had series of antibiotics for acute sinusitis that caused facial cellulitis which was treated with a course of augmentin, followed by pharyngitis that was treated with penicillin V potassium, followed by recurrent facial cellulitis which was treated with augmentin on 06/25/18. She denies any current skin changes, sore throat or ear pain. Patient's chart shows diagnosis of diabetes mellitus, however patient denies current diagnosis of diabetes. States that she does not require medication and last A1c was in range. Further review of patient's chart shows last hemoglobin A1c from 03/21/17 was 5.8 which is within normal range. Review of patient's chart shows history of non-ST elevation [place] in 2013, however patient had cardiac catheterization done at [facility] which demonstrated normal coronary arteries and LVEDP of 26 mmHg as well as an echocardiogram which revealed normal systolic function and no significant valvular heart disease as per cardiology consultation note by Dr. Woods on 04/27/14. As per patient her cardiac episode was believed to be due to low potassium. She denies additional symptoms of chest pain or cardiac symptoms since 2013. She has been previously diagnosed with a heart murmur with diagnosis made approximately 30 years ago. Murmur has been previously recorded in patient's chart and is appreciated at today's visit. Although patient's chart has diagnosis of obstructive sleep apnea, she reports she has not been symptomatic nor required her CPAP machine for several years. Patient denies orthopnea or paroxysmal nocturnal dyspnea. Diagnosis of GERD was diagnosed on endoscopy, she denies symptoms of acid reflux. At this time she is not taking medication for GERD. Denies past medical history of: stroke, asthma, COPD, renal issues, liver issues, hepatitis, gastrointestinal ulcers, bleeding disorders, seizures, migraines, depression, autoimmune disorders, thyroid issues Denies prior complications from surgery or anesthesia. Review of Systems Constitutional Denies fever(s), Denies frequent falls and Denies headache(s) Eyes Denies change in vision ENT Denies dental pain, Denies dizziness, Denies ear discharge, Denies headache(s), Denies epistaxis, Denies nasal congestion, Denies nasal discharge and Denies sore throat Cardiovascular Denies chest pain, Denies rapid heart rate, Denies irregular heart rhythm, Denies dyspnea, Denies dyspnea on exertion, Denies orthopnea, Denies paroxysmal nocturnal dyspnea and Denies slow heart rate Respiratory Denies cough, Denies excessive phlegm production, Denies dyspnea, Denies dyspnea on exertion and Denies wheezing Gastrointestinal Denies abdominal pain, Denies melena, Denies hematochezia, Reports constipation (episodes began after starting keto diet), Denies diarrhea, Denies nausea and Denies vomiting Genitourinary Denies hematuria, Denies dysuria and Denies urinary urgency Musculoskeletal Reports as per HPI, Reports numbness (bilateral IF and MF) and Reports tingling (bilateral IF and MF) Neurologic Denies dizziness, Denies frequent falls, Denies headache(s), Reports numbness (bilateral IF and MF) and Reports tingling (bilateral IF and MF) Psychiatric Denies anxiety and Denies depression Allergic/Immunologic Denies wheezing PFSH Medical History Pre-diabetes (Chronic) Hypertension (Chronic) Hyperlipidemia (Chronic) Trigger thumb of left hand (Resolved) Type 2 diabetes mellitus without complication, without long-term current use of insulin (Inactive 01/26/16) Knee pain (Resolved) Insomnia (Chronic 09/07/15) 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) Gastroesophageal reflux disease (Resolved 02/21/16) Essential hypertension (Chronic 03/22/13) Carpal tunnel syndrome (Acute 01/07/13) Sleep apnea (Chronic) Insomnia (Chronic) Panic disorder (Chronic) Osteoarthritis of right knee (Resolved 09/13/13) Hyperlipidemia (Acute) Hypertension (Chronic) Surgical History Arthroplasty of knee EGD - MAC Abdominal hysterectomy Meniscectomy (01/18/08) Replacement of total knee joint History of surgery (Chronic) Social History marital status: current occupational status: retired Smoking and Tabacco status: Never alcohol intake: current alcohol intake frequency: a few times a week Alcohol type: wine substance use type: marijuana Meds Home Medications Medication Instructions Recorded Confirmed Type timolol maleate 1 drp OPHTHALMIC BID drp 05/21/16 07/17/18 History Atorvastatin Calcium 10 mg PO DAILY #90 tab-cap 11/14/17 07/17/18 Clinic amlodipine 5 mg tablet 5 mg PO DAILY #90 tab-cap 03/11/18 07/17/18 Rx paroxetine 40 mg tablet 40 mg PO DAILY #90 tab-cap 03/11/18 07/17/18 Rx spironolactone 25 mg tablet 25 mg PO DAILY #90 tab-cap 03/11/18 07/17/18 Rx B.breve-L.acid-L.rham-S.thermo 1 tab PO DAILY 07/17/18 07/17/18 History [Probiotic] Allergies Allergy/AdvReac Type Severity Reaction Status Date / Time losartan [Losartan] AdvReac Intermediate COUGH Verified 07/17/18 12:02 oxycodone AdvReac Intermediate NAUSEA Verified 07/17/18 12:02 lisinopril AdvReac Mild cough Verified 07/17/18 12:02 Exam Const General: cooperative and no acute distress [facility] Head: normal to inspection, normocephalic and atraumatic Ears: external ears normal General nose exam: external nose normal and no nasal discharge Face and sinus: face symmetric Mouth: oral mucosae normal, lip normal, tongue normal and moist mucous membranes Teeth and gingiva: dentures (full upper and lower dentures) Throat: posterior oropharynx normal Eyes General: appearance normal, both eyes and all related structures Pupils: PERRL EOM: EOM intact bilaterally Neck Neck: trachea midline Carotids: normal carotid upstroke Lymphatic: no lymphadenopathy noted Resp Effort & Inspection: normal respiratory effort and able to speak in complete sentences Auscultation: clear to auscultation bilaterally, no rales, no rhonchi and no wheezes Cardio Heart Sounds: S1 normal, S2 normal, murmur, no rubs and no other Other: [place] testing done on the right wrist elicited brisk return of blood within 10 seconds. Skin General skin exam: no rashes or lesions noted Extrem Other: Right hand examination: Skin is intact with well-healed incisions noted along the wrist and base of middle finger. No signs of thenar atrophy are noted. Slight decrease sensation to light touch along the index and middle finger. Aubrey's compression elicits increased symptoms in the index and middle finger. Tinel's testing at carpal tunnel elicits increased symptoms in index and middle finger as well as shooting sensation through the thumb.
--- NOTE | 2018-07-17 07:59 | HPE_ITS ---
Assessment and Plan (1) Carpal tunnel syndrome: Current visit: Yes Status: Acute Plan: Patient does have fake nails in place which she plans to remove prior to surgery. Discussed surgery including surgical technique, pertinent anatomy, recovery process, benefits and risks including but not limited to risk of infection, blood clot, damage to soft tissue/nerve/blood vessels with patient in detail. After discussion patient gives verbal understanding of risks and elected to proceed with scheduling surgery. Patient had opportunity to ask questions answered to her satisfaction. Patient plans to undergo right carpal tunnel release followed by left carpal tunnel release in a few weeks. She will contact office if issues arise, patient will continue to be scheduled for right ECTR with Dr. Dumas on 07/20/18. Qualifiers: Laterality: bilateral Qualified Code(s): G56.03 - Carpal tunnel syndrome, bilateral upper limbs Ms. Lee is a 67-year-old [id number] female who presents to clinic for preoperative appointment for scheduled right ECTR with Dr. Dumas on 07/20/18. Patient is status post bilateral open carpal tunnel releases approximately 25 years ago in [place]. In 2012 patient started to have bilateral numbness and tingling of her index and middle fingers. She was sent for nerve conduction studies which as per Dr. Dumas's note on 01/27/13 showed prolonged latency of 5.6 seconds on the right wrist and latency of 4.6 on the left which is within upper limits of normal. At that time patient was planning on undergoing carpal tunnel release but did not schedule surgery since her symptoms resolved. Patient reports since that time she had intermittent symptoms but around 2017 she began to have constant numbness, tingling and cold feelings of her index and middle fingers bilaterally. 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 Patient denies symptoms of weakness or loss of dexterity. Symptoms do not currently wake her up at night and she has not tried nighttime bracing. Due to patient's recurrence of symptoms following history of status post bilateral open carpal tunnel and positive nerve conduction studies from 2012 patient was offered and elected to proceed with surgical intervention. Pertinent Surgical Information In May 2018 patient had series of antibiotics for acute sinusitis that caused facial cellulitis which was treated with a course of augmentin, followed by pharyngitis that was treated with penicillin V potassium, followed by recurrent facial cellulitis which was treated with augmentin on 06/25/18. She denies any current skin changes, sore throat or ear pain. Patient's chart shows diagnosis of diabetes mellitus, however patient denies current diagnosis of diabetes. States that she does not require medication and last A1c was in range. Further review of patient's chart shows last hemoglobin A1c from 03/21/17 was 5.8 which is within normal range. Review of patient's chart shows history of non-ST elevation [place] in 2013, however patient had cardiac catheterization done at [facility] which demonstrated normal coronary arteries and LVEDP of 26 mmHg as well as an echocardiogram which revealed normal systolic function and no significant valvular heart disease as per cardiology consultation note by Dr. Woods on 04/27/14. As per patient her cardiac episode was believed to be due to low potassium. She denies additional symptoms of chest pain or cardiac symptoms since 2013. She has been previously diagnosed with a heart murmur with diagnosis made approximately 30 years ago. Murmur has been previously recorded in patient's chart and is appreciated at today's visit. Although patient's chart has diagnosis of obstructive sleep apnea, she reports she has not been symptomatic nor required her CPAP machine for several years. Patient denies orthopnea or paroxysmal nocturnal dyspnea. Diagnosis of GERD was diagnosed on endoscopy, she denies symptoms of acid reflux. At this time she is not taking medication for GERD. Denies past medical history of: stroke, asthma, COPD, renal issues, liver issues, hepatitis, gastrointestinal ulcers, bleeding disorders, seizures, darren nory, depression, autoimmune disorders, thyroid issues Denies prior complications from surgery or anesthesia. Review of Systems Constitutional Denies fever(s), Denies frequent falls and Denies headache(s) Eyes Denies change in vision ENT Denies dental pain, Denies dizziness, Denies ear discharge, Denies headache(s), Denies epistaxis, Denies nasal congestion, Denies nasal discharge and Denies sore throat Cardiovascular Denies chest pain, Denies rapid heart rate, Denies irregular heart rhythm, Denies dyspnea, Denies dyspnea on exertion, Denies orthopnea, Denies paroxysmal nocturnal dyspnea and Denies slow heart rate Respiratory Denies cough, Denies excessive phlegm production, Denies dyspnea, Denies dyspnea on exertion and Denies wheezing Gastrointestinal Denies abdominal pain, Denies melena, Denies hematochezia, Reports constipation (episodes began after starting keto diet), Denies diarrhea, Denies nausea and Denies vomiting Genitourinary Denies hematuria, Denies dysuria and Denies urinary urgency Musculoskeletal Reports as per HPI, Reports numbness (bilateral IF and MF) and Reports tingling (bilateral IF and MF) Neurologic Denies dizziness, Denies frequent falls, Denies headache(s), Reports numbness (bilateral IF and MF) and Reports tingling (bilateral IF and MF) Psychiatric Denies anxiety and Denies depression Allergic/Immunologic Denies wheezing PFSH Medical History Pre-diabetes (Chronic) Hypertension (Chronic) Hyperlipidemia (Chronic) Trigger thumb of left hand (Resolved) Type 2 diabetes mellitus without complication, without long-term current use of insulin (Inactive 01/26/16) Knee pain (Resolved) Insomnia (Chronic 09/07/15) 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) Gastroesophageal reflux disease (Resolved 02/21/16) Essential hypertension (Chronic 03/22/13) Carpal tunnel syndrome (Acute 01/07/13) Sleep apnea (Chronic) Insomnia (Chronic) Panic disorder (Chronic) Osteoarthritis of right knee (Resolved 09/13/13) Hyperlipidemia (Acute) Hypertension (Chronic) Surgical History Arthroplasty of knee EGD - MAC Abdominal hysterectomy Meniscectomy (01/18/08) Replacement of total knee joint History of surgery (Chronic) Social History marital status: current occupational status: retired Smoking and Tabacco status: Never alcohol intake: current alcohol intake frequency: a few times a week Alcohol type: wine substance use type: marijuana Meds Home Medications Medication Instructions Recorded Confirmed Type timolol maleate 1 drp OPHTHALMIC BID drp 05/21/16 07/17/18 History Atorvastatin Calcium 10 mg PO DAILY #90 tab-cap 11/14/17 07/17/18 Clinic amlodipine 5 mg tablet 5 mg PO DAILY #90 tab-cap 03/11/18 07/17/18 Rx paroxetine 40 mg tablet 40 mg PO DAILY #90 tab-cap 03/11/18 07/17/18 Rx spironolactone 25 mg tablet 25 mg PO DAILY #90 tab-cap 03/11/18 07/17/18 Rx B.breve-L.acid-L.rham-S.thermo 1 tab PO DAILY 07/17/18 07/17/18 History [Probiotic] Allergies Allergy/AdvReac Type Severity Reaction Status Date / Time losartan [Losartan] AdvReac Intermediate COUGH Verified 07/17/18 12:02 oxycodone AdvReac Intermediate NAUSEA Verified 07/17/18 12:02 lisinopril AdvReac Mild cough Verified 07/17/18 12:02 Exam Const General: cooperative and no acute distress [facility] Head: normal to inspection, normocephalic and atraumatic Ears: external ears normal General nose exam: external nose normal and no nasal discharge Face and sinus: face symmetric Mouth: oral mucosae normal, lip normal, tongue normal and moist mucous membranes Teeth and gingiva: dentures (full upper and lower dentures) Throat: posterior oropharynx normal Eyes General: appearance normal, both eyes and all related structures Pupils: PERRL EOM: EOM intact bilaterally Neck Neck: trachea midline Carotids: normal carotid upstroke Lymphatic: no lymphadenopathy noted Resp Effort & Inspection: normal respiratory effort and able to speak in complete sentences Auscultation: clear to auscultation bilaterally, no rales, no rhonchi and no wheezes Cardio Heart Sounds: S1 normal, S2 normal, murmur, no rubs and no other Other: [place] testing done on the right wrist elicited brisk return of blood within 10 seconds. Skin General skin exam: no rashes or lesions noted Extrem Other: Right hand examination: Skin is intact with well-healed incisions noted along the wrist and base of middle finger. No signs of thenar atrophy are noted. Slight decrease sensation to light touch along the index and middle finger. Aubrey's compression elicits increased symptoms in the index and middle finger. Tinel's testing at carpal tunnel elicits increased symptoms in index and middle finger as well as shooting sensation through the thumb.
== END 2018-07-17 08:10 ==
PROVIDERS: PCP Emergency Medicine; Visit Provider Orthopaedic Surgery
DX: G56.01 Carpal tunnel syndrome, right upper limb (principal); Z01.818 Encounter for other preprocedural examination
CPT/HCPCS: NC

== ENCOUNTER 2018-07-20 06:08 | Day surgery (SDC) | payer MEDICARE, OTHER, SELFPAY ==
[2018-07-20 06:22] VITALS: BP 180/62; PULSE 55; RESP 18; TEMP 35.9; O2SAT 97
[2018-07-20] MEDS: Normal Saline Flush 10 ML SYR IV (06:51)
[2018-07-20] MEDS: Lactated Ringers 1,000 ML 80 ML IV (06:52)
--- NOTE | 2018-07-20 08:16 | W.PM.DSUDISC ---
Discharge Plan Disposition Patient Disposition: HOME Condition: Good Discharge Details Reason For Visit: R ECTR Attending Provider: Rodolfo Dumas Primary Care Provider: Adan Díaz Home Meds and New Rx's Prescriptions: New hydrocodone-acetaminophen 5-325 mg tablet 1 tab PO Q6H PRN (Reason: pain) Qty: 7 RF: 0 Continued timolol maleate 5 ML gel forming solution 1 drp Ophthalmic BID RF: 0 Atorvastatin Calcium 10 MG tablet 10 mg PO DAILY Qty: 90 RF: 3 spironolactone 25 mg tablet 25 mg PO DAILY Qty: 90 RF: 3 amlodipine 5 mg tablet 5 mg PO DAILY Qty: 90 RF: 3 paroxetine HCl 40 mg tablet 40 mg PO DAILY Qty: 90 RF: 3 Probiotic 3 billion cell Tablet,Chewable 1 tab PO DAILY RF: 0 Discharge Instructions Additional Instructions: Elevate R hand above heart level as much as possible overnite tonite. Wiggle fingers and thumb R hand 10 times/hour when awake, to prevent swelling. Remove splint and dressings after 48 hours and begin to move R wrist. Use R hand as much as your discomfort allows. May shower or bathe and get incision wet after you remove the dressings in 48 hours. Leave incision uncovered when it is dry and sealed. Follow up in 's office in 2 weeks. Referrals: Rodolfo Dumas MD [ [facility] STAFF PHYSICIAN] - (f/u in 2 weeks.) Equipment/Supplies: Splint Activity:: Activity as Tolerated Remove Dressings/Wound Care:: 48 hours Shower/Bathe:: 48 hours Diet:: As Tolerated Discharge Orders Discharge Orders: Discharge Order (Routine); Ordered 07/20/18 Ordered By: Rodolfo Dumas DS: Diagnosis Discharge Diagnosis (1) Acute carpal tunnel syndrome of right wrist: Status: Acute
[2018-07-20 09:09] VITALS: BP 130/63; PULSE 50; RESP 16; TEMP 35.8; O2SAT 98
--- NOTE | 2018-07-20 10:45 | ROE_ITS ---
REPORT OF OPERATIVE PROCEDURE DATE OF PROCEDURE July 20, 2018 PREOPERATIVE DIAGNOSIS Recurrent carpal tunnel syndrome right. POSTOPERATIVE DIAGNOSIS Recurrent carpal tunnel syndrome right. PROCEDURE Endoscopic carpal tunnel release on the right. ANESTHESIA IV regional, Opal Samuels C.R.N.A. SURGEON Rodolfo Dumas M.D. INDICATIONS FOR PROCEDURE This is a 68-year-old white female who she thinks about 30 years ago had an endoscopic carpal tunnel release on the right with good result. Over the last year or so, she has had a recurrence of symptoms . This has begun to cause more and more problems with her right hand. Over the last couple of months, it has really been significant numbness and pain in the median nerve distribution of the right hand. It is interfering with her day to day activities. Splinting has not helped. Clinical exam was consis tent with a recurrent carpal tunnel syndrome on the right. Based upon my examination, I felt that gatito pite the fact that she had had a previous carpal tunnel release that she was a candidate for repeat e ndoscopic carpal tunnel release rather than open carpal tunnel release. This would allow a much faste r recovery. The risks and complications of the procedure were explained to the patient in detail preo peratively. I did tell her that if I encountered a lot of scaring, we would convert from an endoscopi c procedure to an open procedure. DESCRIPTION OF PROCEDURE The patient was taken to the Operating Room on 07/20/2018. She was placed supine on the operating tab le. An IV regional anesthetic was administered to the right upper extremity. Once good anesthesia w as obtained, the right hand, wrist, and forearm were prepped and draped free in the usual sterile fas hion. A transverse incision was made in line with the proximal flexion crease of the wrist, beginnin g at the flexor carpi radialis tendon and extending to the flexor carpi ulnaris tendon. The subcutane ous veins were cauterized. Distally based fascial flap was then created to gain access to the carpal canal. Synovial reflector was then used to free up any adhesions to the under surface of the volar c arpal ligament. I encountered really very minimal scarring and was able to completely free up the und er surface of the volar carpal ligament with the synovial reflector. A series of obturators were then inserted to make space for the endoscope. Within the incision, the median nerve looked pristine. I inserted the AG endoscope blade device in the carpal canal, carefully placed it against the hook of the hamate and advanced the endoscope until the distal edge of the volar carpal ligament was clearly seen. Surprisingly the ligament fibers looked pristine. When I clearly saw the distal edge of the l igament, I depressed the trigger raising the blade, I then withdrew the raised blade from distal to p roximal out through the skin incision transecting the volar carpal ligament. The endoscope was then p laced back in the canal and I was able to witness the median nerve falling into the gap made by trans ecting the volar carpal ligament. At this point, the wound was irrigated with saline solution. The w ound margins were infiltrated with 0.5% Marcaine with epinephrine solution, and then a median nerve b lock was performed with 0.5% Marcaine with epinephrine solution. The skin and subcutaneous tissues w ere approximated with 2 horizontal mattress sutures of #4 4-0 Nylon suture material. The wounds were dressed with Xeroform gauze, Sterile gauze, 4x4s, wrapped with a 4-inch Kerlix and then a 3-inch MERCY bandage. She was placed in a commercial cock-up wrist splint. The IV regional anesthesia was reversed without complications. She was discharged to the Recovery Ro in good condition. The patient was discharged home from Day Surgery Unit when fully recovered from her IV regional anest hesia. She was given instructions to elevate her right hand above heart level as much as possible ov keturah yu. She was encouraged to wiggle her fingers of the right hand 10 times an hour while a wake to prevent swelling. She is to keep the dressings and splint intact and dry for 48 hours. After 48 hours, she is to remove the splint and dressings, and begin to move her right wrist. After she r emoves her dressings, she may shower or bathe and get her incision wet. She can leave the incision u ncovered when it is dry and sealed. She may use her right hand as much discomfort allows. She was gi guadalupe a prescription of hydrocodone with APAP 5/325 one tablet every 6 hours if needed for pain not rel ieved by Tylenol or ibuprofen. She will follow up in my office in two weeks.
== END 2018-07-20 09:05 | disposition home or self-care (01) ==
PROVIDERS: PCP Emergency Medicine; Visit Provider Orthopaedic Surgery
PROC: 01N54ZZ Release Median Nerve, Percutaneous Endoscopic Approach (ICD-10-PCS; CPT 29848; principal; 2018-07-20 07:30)
DX: G56.01 Carpal tunnel syndrome, right upper limb (principal)
CPT/HCPCS: 29848; J0690; L3908

== ENCOUNTER → 2018-07-31 08:06 | Outpatient (BNVA) | payer MEDICARE, OTHER, SELFPAY | PROVIDERS: PCP Emergency Medicine; Referring Provider Emergency Medicine; Visit Provider Student in an Organized Health Care Education/Training Program | DX: Z48.02 Encounter for removal of sutures (principal) ==

== ENCOUNTER 2018-08-15 13:24 | Emergency (ER) | payer MEDICARE, OTHER, SELFPAY ==
[2018-08-15 13:27] VITALS: BP 188/65; PULSE 73; RESP 16; TEMP 36.4; O2SAT 95
--- NOTE | 2018-08-15 13:46 | W.ED.GENAD ---
Discharge Plan Disposition Patient Disposition: HOME Condition: Improving Discharge Details Chief Complaint: GenMedical Clinical Impression: Cellulitis of scalp Primary Care Provider: Adan Díaz ED Provider: Rodolfo Sweeney Home Meds and New Rx's Prescriptions: New clindamycin HCl 300 mg capsule 300 mg PO QID Qty: 40 RF: 0 Florastor 250 mg capsule 250 mg PO BID Qty: 20 RF: 0 mupirocin 2 % ointment 1 applic TP BID Qty: 30 RF: 0 No Action timolol maleate 5 ML gel forming solution 1 drp Ophthalmic BID RF: 0 spironolactone 25 mg tablet 25 mg PO DAILY Qty: 90 RF: 3 amlodipine 5 mg tablet 5 mg PO DAILY Qty: 90 RF: 3 paroxetine HCl 40 mg tablet 40 mg PO DAILY Qty: 90 RF: 3 atorvastatin 10 mg tablet 10 mg PO DAILY Qty: 90 RF: 3 Probiotic 3 billion cell Tablet,Chewable 1 tab PO DAILY RF: 0 Discharge Instructions Instructions: Cellulitis (ED) Additional Instructions: Please apply mupirocin to affected area twice daily. Please take antibiotics as prescribed and I recommend you take the prescribed probiotic as well. Home to rest today. Return for any acute concerns. Medical Decision Making 68-year-old female who states that she has had 3 separate episodes of left retroauricular cellulitis since May. She was in the [place] last week and felt the symptoms recurred, states she bought [id number] amoxicillin and took for 3 days with some improvement, now with 2 days of recurrent left retroauricular erythema and discomfort. She is afebrile and well-appearing. She is slightly hypertensive on exam. She may have a developing folliculitis and has some discrete eczema that may allow for staph and strep to violate the integrity of the dermis. Differential diagnosis would in include erysipelas/staph/strep. I will place her on clindamycin, topical mupirocin. She stable for outpatient management follow-up with Dr. Díaz for recheck HPI General Mode of arrival: ambulatory. Date/Time Provider Initiated Documentation: 08/15/18 13:32. Limitations to Documentation: no limitations. Information obtained by: patient. History of Present Illness 68 year old F presents to the emergency department with the chief complaint of Left retroauricular infection, recurrent x2days, described as similar to prior episodes, Quality is described as aching, and is localized to the head and left. Patient reports no radiation. Patient started experiencing this day(s) and it has been constant. No relieving factors improve symptom(s), No exacerbating factors reported . Patient notes fever/chills. Patient did receive the following treatments prior to arrival, none Related Data Home Medications Medication Instructions Recorded Confirmed timolol maleate 1 drp OPHTHALMIC BID drp 05/21/16 08/15/18 amlodipine 5 mg tablet 5 mg PO DAILY #90 tab-cap 03/11/18 08/15/18 paroxetine 40 mg tablet 40 mg PO DAILY #90 tab-cap 03/11/18 08/15/18 spironolactone 25 mg tablet 25 mg PO DAILY #90 tab-cap 03/11/18 08/15/18 Probiotic 1 tab PO DAILY 07/17/18 08/15/18 atorvastatin 10 mg tablet 10 mg PO DAILY #90 tab 08/04/18 08/15/18 Saccharomyces boulardii [Florastor] 250 mg PO BID #20 cap 08/15/18 clindamycin HCl 300 mg PO QID #40 cap 08/15/18 mupirocin 1 applic TP BID #30 gm 08/15/18 Previous Rx's Medication Instructions Recorded amlodipine 5 mg tablet 5 mg PO DAILY #90 tab-cap 03/11/18 paroxetine 40 mg tablet 40 mg PO DAILY #90 tab-cap 03/11/18 spironolactone 25 mg tablet 25 mg PO DAILY #90 tab-cap 03/11/18 atorvastatin 10 mg tablet 10 mg PO DAILY #90 tab 08/04/18 Saccharomyces boulardii [Florastor] 250 mg PO BID #20 cap 08/15/18 clindamycin HCl 300 mg PO QID #40 cap 08/15/18 mupirocin 1 applic TP BID #30 gm 08/15/18 Allergies Allergy/AdvReac Type Severity Reaction Status Date / Time losartan [Losartan] AdvReac Intermediate COUGH Verified 08/15/18 13:32 oxycodone AdvReac Intermediate NAUSEA Verified 08/15/18 13:32 lisinopril AdvReac Mild cough Verified 08/15/18 13:32 General Stated Complaint: GenMedical WINDY: 3 Review of Systems Review of Systems 8 systems reviewed and otherwise negative PEND[facility] SALE TO [facility] Medical History Pre-diabetes (Chronic) Hypertension (Chronic) Hyperlipidemia (Chronic) Trigger thumb of left hand (Resolved) Type 2 diabetes mellitus without complication, without long-term current use of insulin (Inactive 01/26/16) Knee pain (Resolved) Insomnia (Chronic 09/07/15) 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) Gastroesophageal reflux disease (Resolved 02/21/16) Essential hypertension (Chronic 03/22/13) Carpal tunnel syndrome (Acute 01/07/13) Sleep apnea (Chronic) Insomnia (Chronic) Panic disorder (Chronic) Osteoarthritis of right knee (Resolved 09/13/13) Hyperlipidemia (Acute) Hypertension (Chronic) Surgical History Arthroplasty of knee EGD - MAC Abdominal hysterectomy Meniscectomy (01/18/08) Replacement of total knee joint History of surgery (Chronic) Family History Brother CAD (coronary artery disease) Neoplasm Grandfather Neoplasm Grandmother Neoplasm Mother Stroke Social History Smoking/Tobacco Use Status: Never Alcohol Intake: never Drug use: Rarely Substance use type: does not use Do you feel safe at home: Yes Do you feel safe in your relationship?: Yes Exam Narrative Exam Narrative: GEN: awake, alert, oriented 3. Pleasant, well groomed, interactive. HEAD: Normocephalic, atraumatic ENT: Mucous membranes moist, oropharynx unremarkable, External ear exam with tenderness left retroauricular space, question subtle folliculitis. EYES: PERRL, EOMI NECK: Full ROM, no AMANDA, no menigismus CHEST/RESP: Nontender, clear to auscultation bilateral, no wheeze/rhonchi/rales CARDIOVASCULAR: RRR, no murmur, rub casey. 2+ Rad pulse bilateral ABDOMEN: Soft, nontender, no mass. +Bowel sounds EXT: Full ROM, no edema, no rash Neuro: Grossly normal neurologic exam, conversant, interactive. Psych: Speech fluent, thoughts congruent, affect normal Course Vital Signs Temperature 36.4 C L 08/15/18 13:27 Pulse 73 08/15/18 13:27 Respiratory Rate 16 08/15/18 13:27 Blood Pressure 188/65 H 08/15/18 13:27 Pulse Oximetry 95 08/15/18 13:27 Temperature 36.4 C L 08/15/18 13:27 Temperature Source Temporal Artery Scan 08/15/18 13:27 Pulse 73 08/15/18 13:27 Respiratory Rate 16 08/15/18 13:27 Respiratory Effort 08/15/18 13:27 Blood Pressure 188/65 H 08/15/18 13:27 Blood Pressure Position Standing 08/15/18 13:27 Pulse Oximetry 95 08/15/18 13:27 Oxygen Delivery Method Room Air 08/15/18 13:27 Oxygen Flow Rate 0 08/15/18 13:27 Pain Level 6 08/15/18 13:27
--- NOTE | 2018-08-15 13:51 | ED.GENADUL_ITS ---
Discharge Plan Disposition Patient Disposition: HOME Condition: Improving Discharge Details Chief Complaint: GenMedical Clinical Impression: Cellulitis of scalp Primary Care Provider: Adan Díaz ED Provider: Rodolfo Sweeney Home Meds and New Rx's Prescriptions: New clindamycin HCl 300 mg capsule 300 mg PO QID Qty: 40 RF: 0 Florastor 250 mg capsule 250 mg PO BID Qty: 20 RF: 0 mupirocin 2 % ointment 1 applic TP BID Qty: 30 RF: 0 No Action timolol maleate 5 ML gel forming solution 1 drp Ophthalmic BID RF: 0 spironolactone 25 mg tablet 25 mg PO DAILY Qty: 90 RF: 3 amlodipine 5 mg tablet 5 mg PO DAILY Qty: 90 RF: 3 paroxetine HCl 40 mg tablet 40 mg PO DAILY Qty: 90 RF: 3 atorvastatin 10 mg tablet 10 mg PO DAILY Qty: 90 RF: 3 Probiotic 3 billion cell Tablet,Chewable 1 tab PO DAILY RF: 0 Discharge Instructions Instructions: Cellulitis (ED) Additional Instructions: Please apply mupirocin to affected area twice daily. Please take antibiotics as prescribed and I recommend you take the prescribed probiotic as well. Home to rest today. Return for any acute concerns. Medical Decision Making 68-year-old female who states that she has had 3 separate episodes of left re troauricular cellulitis since May. She was in the [place] last week and felt the symptoms recurred, states she bought [id number] amoxicillin and took for 3 days with some improvement, now with 2 days of recurrent left retroauricular erythema and discomfort. She is afebrile and well-appearing. She is slightly hypertensive on exam. She may have a developing folliculitis and has some discrete eczema that may allow for staph and strep to violate the integrity of the dermis. Differential diagnosis would in include erysipelas/staph/strep. I will place her on clindamycin, topical mupirocin. She stable for outpatient management follow-up with Dr. Díaz for recheck HPI General Mode of arrival: ambulatory . Date/Time Provider Initiated Documentation: 08/15/18 13:32 . Limitations to Documentation: no limitations . Information obtained by: patient . History of Present Illness 68 year old F presents to the emergency department with the chief complaint of Left retroauricular infection, recurrent x2days, described as similar to prior episodes, Quality is described as aching, and is localized to the head and left. Patient reports no radiation. Patient started experiencing this day(s) and it has been constant. No relieving factors improve symptom(s), No exacerbating factors reported . Patient notes fever/chills. Patient did receive the following treatments prior to arrival, none Related Data Home Medications Medication Instructions Recorded Confirmed timolol maleate 1 drp OPHTHALMIC BID drp 05/21/16 08/15/18 amlodipine 5 mg tablet 5 mg PO DAILY #90 tab-cap 03/11/18 08/15/18 paroxetine 40 mg tablet 40 mg PO DAILY #90 tab-cap 03/11/18 08/15/18 spironolactone 25 mg tablet 25 mg PO DAILY #90 tab-cap 03/11/18 08/15/18 Probiotic 1 tab PO DAILY 07/17/18 08/15/18 atorvastatin 10 mg tablet 10 mg PO DAILY #90 tab 08/04/18 08/15/18 Saccharomyces boulardii [Florastor] 250 mg PO BID #20 cap 08/15/18 clindamycin HCl 300 mg PO QID #40 cap 08/15/18 mupirocin 1 applic TP BID #30 gm 08/15/18 Previous Rx's Medication Instructions Recorded amlodipine 5 mg tablet 5 mg PO DAILY #90 tab-cap 03/11/18 paroxetine 40 mg tablet 40 mg PO DAILY #90 tab-cap 03/11/18 spironolactone 25 mg tablet 25 mg PO DAILY #90 tab-cap 03/11/18 atorvastatin 10 mg tablet 10 mg PO DAILY #90 tab 08/04/18 Saccharomyces boulardii [Florastor] 250 mg PO BID #20 cap 08/15/18 clindamycin HCl 300 mg PO QID #40 cap 08/15/18 mupirocin 1 applic TP BID #30 gm 08/15/18 Allergies Allergy/AdvReac Type Severity Reaction Status Date / Time losartan [Losartan] AdvReac Intermediate COUGH Verified 08/15/18 13:32 oxycodone AdvReac Intermediate NAUSEA Verified 08/15/18 13:32 lisinopril AdvReac Mild cough Verified 08/15/18 13:32 General Stated Complaint: GenMedical WINDY: 3 Review of Systems Review of Systems 8 systems reviewed and otherwise negative [facility] Medical History Pre-diabetes (Chronic) Hypertension (Chronic) Hyperlipidemia (Chronic) Trigger thumb of left hand (Resolved) Type 2 diabetes mellitus without complication, without long-term current use of insulin (Inactive 01/26/16) Knee pain (Resolved) Insomnia (Chronic 09/07/15) 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) Gastroesophageal reflux disease (Resolved 02/21/16) Essential hypertension (Chronic 03/22/13) Carpal tunnel syndrome (Acute 01/07/13) Sleep apnea (Chronic) Insomnia (Chronic) Panic disorder (Chronic) Osteoarthritis of right knee (Resolved 09/13/13) Hyperlipidemia (Acute) Hypertension (Chronic) Surgical History Arthroplasty of knee EGD - MAC Abdominal hysterectomy Meniscectomy (01/18/08) Replacement of total knee joint History of surgery (Chronic) Family History Brother CAD (coronary artery disease) Neoplasm Grandfather Neoplasm Grandmother Neoplasm Mother Stroke Social History Smoking/Tobacco Use Status: Never Alcohol Intake: never Drug use: Rarely Substance use type: does not use Do you feel safe at home: Yes Do you feel safe in your relationship?: Yes Exam Narrative Exam Narrative: GEN: awake, alert, oriented 3. Pleasant, well groomed, interactive. HEAD: Normocephalic, atraumatic ENT: Mucous membranes moist, oropharynx unremarkable, External ear exam with tenderness left retroauricular space, question subtle folliculitis. EYES: PERRL, EOMI NECK: Full ROM, no AMANDA, no menigismus CHEST/RESP: Nontender, clear to auscultation bilateral, no wheeze/rhonchi/rales CARDIOVASCULAR: RRR, no murmur, rub casey. 2+ Rad pulse bilateral ABDOMEN: Soft, nontender, no mass. +Bowel sounds EXT: Full ROM, no edema, no rash Neuro: Grossly normal neurologic exam, conversant, interactive. Psych: Speech fluent, thoughts congruent, affect normal Course Vital Signs Temperature 36.4 C L 08/15/18 13:27 Pulse 73 08/15/18 13:27 Respiratory Rate 16 08/15/18 13:27 Blood Pressure 188/65 H 08/15/18 13:27 Pulse Oximetry 95 08/15/18 13:27 Temperature 36.4 C L 08/15/18 13:27 Temperature Source Temporal Artery Scan 08/15/18 13:27 Pulse 73 08/15/18 13:27 Respiratory Rate 16 08/15/18 13:27 Respiratory Effort 08/15/18 13:27 Blood Pressure 188/65 H 08/15/18 13:27 Blood Pressure Position Standing 08/15/18 13:27 Pulse Oximetry 95 08/15/18 13:27 Oxygen Delivery Method Room Air 08/15/18 13:27 Oxygen Flow Rate 0 08/15/18 13:27 Pain Level 6 08/15/18 13:27
[2018-08-15 14:02] VITALS: BP 188/65; PULSE 73; RESP 16; RESP 18; TEMP 36.4; O2SAT 95
== END 2018-08-15 14:02 | disposition home or self-care (01) ==
PROVIDERS: Emergency Provider Emergency Medicine; PCP Emergency Medicine
DX: L03.811 Cellulitis of head [any part, except face] (principal)
CPT/HCPCS: 99283

== ENCOUNTER 2018-08-27 16:41 | Outpatient (CLI) | payer MEDICARE, OTHER, SELFPAY ==
[2018-08-27 11:33] LABS: Abs Immature Grans 0.01 k/cumm (0.0-0.09); Absolute Basophil Count 0.06 k/cumm (0.0-0.2); Absolute Eosinophil Count 0.36 k/cumm (0.0-0.7); Absolute Neutrophil Count 3.56 k/cumm (1.2-6.7); Eosinophils % 6.2; HCT 42.1 % (36.0-46.0); HGB 13.9 g/dL (12.0-15.5); Immature Grans % 0.2; Lymphocytes % 22.5; Mean Corpuscular Hemoglobin 29.1 pg (27.0-33.0); Mean Corpuscular Volume 88.3 fL (80-95); Mean Platelet Volume 10.3 fL (8.0-11.0); Monocytes % 8.6; Neutrophils % 61.5; Platelet Count 298 x1000/uL (130-400); RBC 4.77 m/cumm (4.00-5.20); RBC Distribution Width 12.6 % (11.7-14.6); White Blood Cell Count 5.79 k/cumm (4.4-10.8)
[2018-08-27 12:05] LABS: ALT 35 U/L (12-78); AST 22 U/L (15-37); Albumin 3.8 g/dL (3.4-5.0); Alkaline Phosphatase 49 U/L (46-116); Anion Gap 8.6 mmol/L (3-11); BUN 19 mg/dL (7-18); Bilirubin, Total 0.5 mg/dL (0.2-1.0); CO2 29.4 mmol/L (21.0-32.0); Calcium 8.8 mg/dL (8.5-10.1); Chloride 102 mmol/L (98-107); Estimated GFR 54.81 (mL/min/1.73m2); Glucose 110 mg/dL (70-100); Potassium 4.2 mmol/L (3.5-5.1); Sodium 140 mmol/L (136-145); Total Protein 7.8 g/dL (6.4-8.2)
[2018-08-27] MEDS: Omnipaque 350 MG/ML 100 ML BTL IJ (12:50)
--- NOTE | 2018-08-27 12:54 | DI.CT_ITS ---
SYMPTOMS/DIAGNOSIS: SEVERE SHARP PAIN WITH SWALLOWING SOLIDS, ODYNOPHAGIA, DYSPHAGIA, R13.10, GERD, K21.9 CT EXAMINATION OF THE NECK AND CHEST: The study was carried out according to the usual protocol with an intravenous injection of 99.4 cc of Omnipaque 350. CT EXAMINATION OF THE NECK: There is no evident abnormality involving the oropharynx or hypopharynx. No soft tissue mass is demonstrated. There is no evidence of gas in the soft tissue. Straightening of the normal cervical lordosis is noted with diffuse degenerative changes with multilevel disc space narrowing, sclerosis and hypertrophic spurring. No significant vascular abnormality is demonstrated in the neck. CT EXAMINATION OF THE CHEST: The lungs are unremarkable. There is no pleural effusion. There is no pneumothorax. There is no evidence of a mass or adenopathy. The heart is not enlarged. No pericardial effusion is seen. The aorta appears intact. There are degenerative bony changes and no acute bony abnormality is seen. In the upper abdomen, aside from a small hepatic cyst, the liver is unremarkable. The spleen is intact, the adrenals and upper pole of the kidneys are well maintained. SUMMARY: No evidence of an acute thoracic abnormality. Specifically, nothing to suggest an esophageal rupture.
== END 2018-08-27 17:01 ==
PROVIDERS: PCP Emergency Medicine; Visit Provider Family Medicine
DX: K21.9 Gastro-esophageal reflux disease without esophagitis (principal); R13.10 Dysphagia, unspecified; L03.90 Cellulitis, unspecified
CPT/HCPCS: 36415; 70491; 80053; 71260; 85025; J3490

== ENCOUNTER 2018-09-03 00:26 | Outpatient (CLI) | payer MEDICARE, OTHER, SELFPAY ==
--- NOTE | 2018-09-03 08:54 | DI.RAD_ITS ---
SYMPTOM/DIAGNOSIS: BACK PAIN WITH SWALLOWING SOLIDS, ODYNOPHAGIA, GERD, DYSPHAGIS, R13.10 BARIUM SWALLOW: Fluoroscopy Time: 57 seconds A PA and lateral chest is within normal limits. A soft tissue lateral of the neck reveals no soft tissue abnormality. Degenerative changes involving the cervical spine are evident. The patient is edentulous. Barium was swallowed without difficulty. The jennifer and hypopharynx appear normal. There is no evidence of a diverticulum or stricture. The esophagus is well maintained throughout. There is no hiatus hernia. SUMMARY: Normal barium swallow.
== END 2018-09-03 00:46 ==
PROVIDERS: PCP Emergency Medicine; Visit Provider Family Medicine
DX: R13.10 Dysphagia, unspecified (principal); K21.9 Gastro-esophageal reflux disease without esophagitis; I10 Essential (primary) hypertension; E11.9 Type 2 diabetes mellitus without complications
CPT/HCPCS: 99212; 74220

== ENCOUNTER 2018-09-04 09:09 | Day surgery (SDC) | payer MEDICARE, OTHER, SELFPAY ==
[2018-09-04 09:42] VITALS: BP 127/71; PULSE 57; RESP 16; TEMP 36; O2SAT 96
[2018-09-04 09:49] VITALS: BP 127/71; PULSE 57; RESP 16; TEMP 36; O2SAT 96
[2018-09-04] MEDS: Lactated Ringers 1,000 ML 80 ML IV (10:00)
--- NOTE | 2018-09-04 10:40 | STOM_PTH ---
PATIENT: SHAHZAD MCCABE LOC: [facility] U#:[id number] AGE/SX: 68/F ROOM: RE09/04/[address]: Shantel Alvarez : 1950 BED: DIS: 09/04/2018 SPEC #: [id number] RECD: 09/04/18 12:56 STATUS: MARCELLO RE #: [id number] CAITY: 09/04/18 10:[address]: Shantel Alvarez DEPT: Surgical Specimen RECD BY: Mayte Turner ENTERED: 09/04/18 12:59 SP TYPE: STOMACH OTHR DR: Adan Díaz DO Tissues: 1 - STOMACH BIOPSY 2 - STOMACH BIOPSY 3 - STOMACH BIOPSY 4 - ESOPHAGUS BIOPSY 5 - ESOPHAGUS BIOPSY 6 - HERNIA SAC,OTHER Procedures: GROSS AND MICRO LEVEL 4 Comments: [id number]
--- NOTE | 2018-09-04 10:50 | ENDO_ITS ---
Date of service: 09/04/18 Time of Service: 10:49 Endoscopy Report DATE OF PROCEDURE: 09/04/18 PRE-OP DIAGNOSIS: reflux POST-OP DIAGNOSIS: other (very sm hiatal herni a) PROCEDURE: After informed consent was obtained the patient was take to the procedure room and placed in a supine position. Monitors were applied and a time out was done. The patients name, date of , procedure type, allergies to medications and metal in their body was reviewed. A bite block was placed and the patient was sedated. Once sedated and comfortable the gastroscope was advanced through the oropharynx which was grossly normal into the esophagus. The proximal and mid-esophagus were nl. In the distal esophagus there was mild erthymea noted. The scope was advanced into the stomach and through the pylorus into the 3rd portion of the duodenum. The duodenum was noted to be nl. Biopsies were done: all specimens were retrieved and no bleeding was noted. . The scope was retracted back into the stomach and biopsies were done to rule out H. pylori. There were no ulcers. The scope was retroflexed. The cardia and fundus were noted to be normal. There very small a hiatal hernia noted. The scope was retracted back into the esophagus and biopsies were done of the GE junction to rule out Busch's. The Z line was regular. The GE junction shows very mild esophagitis. The scope was removed and the patient was woken up and taken back to [facility] in stable condition. Follow up: SURGEON: Shantel Alvarez ANESTHESIA: GETA ESTIMATED BLOOD LOSS: 2 PATHOLOGY: other COMPLICATIONS: None DISPOSITION: same day INDICATIONS: see note FINDINGS: see note
--- NOTE | 2018-09-04 10:50 | W.PM.DSUDISC ---
Discharge Plan Disposition Patient Disposition: HOME Condition: Good Discharge Details Reason For Visit: egd w/ Bx Attending Provider: Shantel Alvarez Primary Care Provider: Adan Díaz Home Meds and New Rx's Prescriptions: New pantoprazole [Protonix] 40 mg tablet,delayed release (DR/EC) 40 mg PO DAILY Qty: 30 RF: 11 Continued mupirocin 2 % ointment 1 applic TP BID PRNRF: 0 timolol maleate 5 ML gel forming solution 1 drp Ophthalmic BID RF: 0 spironolactone 25 mg tablet 25 mg PO DAILY Qty: 90 RF: 3 amlodipine 5 mg tablet 5 mg PO DAILY Qty: 90 RF: 3 paroxetine HCl 40 mg tablet 40 mg PO DAILY Qty: 90 RF: 3 atorvastatin 10 mg tablet 10 mg PO DAILY Qty: 90 RF: 3 sucralfate [Carafate] 1 gram tablet 1 gm PO QACHS Qty: 120 RF: 0 Probiotic 3 billion cell Tablet,Chewable 1 tab PO DAILY RF: 0 Discontinued omeprazole 40 mg capsule,delayed release(DR/EC) 40 mg PO BID Qty: 60 RF: 0 Discharge Instructions Additional Instructions: Findings:very sm. hiatal hernia mild esophagitis Continue with lifestyle modifications: no alcohol, tobacco products, Aspirin or NSAID's (ibuprofen, Motrin, Naprosyn, aleve, etc), soda pop/any carbonated beverages, caffeine (including tea & chocolate), and acidic foods, (tomatoes, citrus, onions, peppermints) spicy or fried/fatty foods. Do not lie down for 30 minutes after eating, and do not eat 2 hours prior to bedtime. Avoid wearing tight fitting clothing/ belts Follow up: when returns from [facility] if not feeling better Please call if you develop: fevers >101.5 Nausea or Vomiting Abdominal pain that is not transient DAY SURGERY UNIT POST COLONOSCOPY INSTRUCTIONS 1. Because there will be medication in your system for the next 24 hours, you may feel a little sleepy. Your coordination will be affected. Therefore: a. Do not drive or operate dangerous equipment for 24 hours. b. Do not drink alcohol beverages for 24 hours (not even beer). c. Plan to go home and rest for the day. 2. Generally there are no restrictions on your activity after a day or so has gone by, but you may feel a bit fatigued for a few days. 3 After you arrive home you may have a light meal and return to a normal diet as you can tolerate it without feeling sick to your stomach. 4. After surgery, you may feel pain or discomfort. This should be only transient, but if it persists please contact your doctor. 5. If there are any questions regarding the findings of your procedure, please feel free to contact your doctor. 6. If you are unable to contact your doctor with a problem, contact the hospital at [phone]. 7. Continue all your regular medications unless directed otherwise. I understand the above instructions and have no questions. Signature of Patient or Responsible Adult Escort Date/Time Name of Responsible Adult Escort Signature of Nurse Date/Time Activity:: no lifting over 10#'s x 24 hrs. no driving x 24 hrs Diet:: lt meals for 24 hrs DS: Diagnosis Discharge Diagnosis (1) GERD (gastroesophageal reflux disease): Status: Chronic
[2018-09-04 11:20] VITALS: BP 143/71; PULSE 53; RESP 16; TEMP 36.3; O2SAT 97
== END 2018-09-04 11:47 | disposition home or self-care (01) ==
PROVIDERS: PCP Emergency Medicine; Visit Provider Surgery
PROC: 0DJ68ZZ Inspection of Stomach, Via Natural or Artificial Opening Endoscopic (ICD-10-PCS; CPT 43235; principal; 2018-09-04 11:45)
DX: K21.0 Gastro-esophageal reflux disease with esophagitis (principal); K31.89 Other diseases of stomach and duodenum; K44.9 Diaphragmatic hernia without obstruction or gangrene; I10 Essential (primary) hypertension
CPT/HCPCS: 43239; 88305; 88302

== ENCOUNTER 2018-10-09 10:01 | Outpatient (CLI) | payer MEDICARE, OTHER, SELFPAY ==
[2018-10-09 12:42] LABS: Anion Gap 8.5 mmol/L (3-11); BUN 12 mg/dL (7-18); CO2 30.5 mmol/L (21.0-32.0); CREATININE 0.88 mg/dL (0.55-1.02); Calcium 8.8 mg/dL (8.5-10.1); Chloride 102 mmol/L (98-107); Glucose 97 mg/dL (70-100); Potassium 4.4 mmol/L (3.5-5.1); Sodium 141 mmol/L (136-145)
[2018-10-09 13:04] LABS: Hemoglobin A1C 6.1 % (4.5-6.2)
== END 2018-10-09 10:21 ==
PROVIDERS: PCP Emergency Medicine; Visit Provider Emergency Medicine
DX: I10 Essential (primary) hypertension (principal); E11.9 Type 2 diabetes mellitus without complications
CPT/HCPCS: 36415; 80048; 83036

== ENCOUNTER → 2018-10-22 09:57 | Outpatient (BNVA) | payer MEDICARE, OTHER, SELFPAY | PROVIDERS: PCP Emergency Medicine; Referring Provider Emergency Medicine; Visit Provider Orthopaedic Surgery | DX: Z47.1 Aftercare following joint replacement surgery (principal); Z96.653 Presence of artificial knee joint, bilateral | CPT/HCPCS: 99211; 99212 ==

== ENCOUNTER → 2019-01-06 09:54 | Outpatient (BNVA) | payer MEDICARE, OTHER, SELFPAY | PROVIDERS: PCP Emergency Medicine; Referring Provider Emergency Medicine; Visit Provider Orthopaedic Surgery | DX: M65.341 Trigger finger, right ring finger (principal); I10 Essential (primary) hypertension; E11.9 Type 2 diabetes mellitus without complications | CPT/HCPCS: 99213; 99214 ==

== ENCOUNTER 2019-01-11 08:56 | Day surgery (SDC) | payer MEDICARE, OTHER, SELFPAY ==
[2019-01-11 08:02] VITALS: BP 142/47; PULSE 62; RESP 16; TEMP 36.6; O2SAT 97
[2019-01-11] MEDS: Lidocaine 2% Multi-Dose 50 ML VIAL (10:02)
--- NOTE | 2019-01-11 10:18 | W.PM.DSUDISC ---
Discharge Plan Disposition Patient Disposition: HOME Condition: Good Discharge Details Reason For Visit: TRIGGER FINGER RELEASE R RING FINGER Attending Provider: Rodolfo Dumas Primary Care Provider: Adan Díaz Home Meds and New Rx's Prescriptions: Continued pantoprazole [Protonix] 40 mg tablet,delayed release (DR/EC) 40 mg PO DAILY Qty: 90 RF: 11 mupirocin 2 % ointment 1 applic TP BID PRNRF: 0 timolol maleate 5 ML gel forming solution 1 drp Ophthalmic BID RF: 0 spironolactone 25 mg tablet 25 mg PO DAILY Qty: 90 RF: 3 amlodipine 5 mg tablet 5 mg PO DAILY Qty: 90 RF: 3 paroxetine HCl 40 mg tablet 40 mg PO DAILY Qty: 90 RF: 3 atorvastatin 10 mg tablet 10 mg PO DAILY Qty: 90 RF: 3 Probiotic 3 billion cell Tablet,Chewable 1 tab PO DAILY RF: 0 Discharge Instructions Additional Instructions: Bend and straighten fingers of R hand 10 times/hour when awake. Keep dressings dry and intact for 48 hours. Remove dressings, shower or bathe and get incision wet after 48 hours. Leave incision uncovered when it is dry and sealed. Take tylenol or ibuprofen for any discomfort. Follow up with in 10-14 days. Use R hand as much as discomfort allows. Stand Alone Forms: Phyllis Garza (DSU) Referrals: Rodolfo Dumas MD [ [facility] STAFF PHYSICIAN] - (f/u in 10-14 days.) Activity:: Activity as Tolerated Remove Dressings/Wound Care:: 48 hours Shower/Bathe:: 48 hours Diet:: As Tolerated Discharge Orders Discharge Orders: Discharge Order (Routine); Ordered 01/11/19 Ordered By: Rodolfo Dumas DS: Diagnosis Discharge Diagnosis (1) Trigger finger, right ring finger: Status: Acute
--- NOTE | 2019-01-11 15:53 | ROE_ITS ---
DATE OF PROCEDURE: January 11, 2019 PREOPERATIVE DIAGNOSIS: Trigger right ring finger. POSTOPERATIVE DIAGNOSIS: Same. PROCEDURE: Tendon sheath incision for trigger right ring finger. ANESTHESIA: Local, 1% Xylocaine solution and 0.5% Marcaine with an epinephrine solution. SURGEON: Rodolfo Dumas M.D. INDICATIONS: This is a 68-year-old white female who has had three previous trigger finger releases. She has developed a trigger finger in the right ring finger that she says is, for some reason, more painful than her previous trigger fingers. It's interfering with her activities and she wants it cor rected. The risks and complications of the procedure were explained to the patient in detail preoper atively. PROCEDURE: The patient was taken to the Operating Room on 01/11/19. She was placed supine on the ope rating table. The right hand was prepped and draped free in the usual sterile fashion. I infiltrate d over the flexor sheath of the right ring finger with 1% Xylocaine solution. I then make a transver se incision 5 mm distal to the distal palmar flexion crease and centered over the flexor sheath of th e ring finger. The incision is about 2 cm in length. The incision was carried down through the skin and subcu. Ragnell retractors were placed so the flexor sheath is clearly visualized. I incise the flexor sheath in the midline and then use Littler scissors to complete the release of the proximal p ulley. The patient was then asked to actively flex and extend her ring finger. She was now able to actively flex her ring finger fully without any locking or catching. The wound was irrigated with sa line solution. The wound margins were infiltrated with 0.5% Marcaine with an epinephrine solution. Hemostasis was obtained with simple direct pressure. The incision margins were approximated with thr ee interrupted #4-0 Nylon sutures. The wound was dressed with Xeroform gauze, sterile gauze 4x4's an d wrapped with a 2-inch Cling bandage for a light pressure dressing. She was discharged to the Day S urgery Unit in good condition. The patient was discharged home from the Day Surgery Unit with instructions to keep the dressings dry and intact for 48 hours. She may use her right hand as much as discomfort allows. She is encourage d to bend and straighten the fingers of her right hand ten times an hour while awake to limit swellin g. After she removes the dressing in 48 hours, she can shower or bathe and get the incision wet. Nas velazquez can leave the incision uncovered when it's dry and sealed. She will take Tylenol or ibuprofen for pain. She will follow-up with me in 10 to 14 days.
== END 2019-01-11 10:40 | disposition home or self-care (01) ==
PROVIDERS: PCP Emergency Medicine; Visit Provider Orthopaedic Surgery
PROC: (CPT 26055; principal; 2019-01-11 10:00)
DX: M65.341 Trigger finger, right ring finger (principal)
CPT/HCPCS: 26055

== ENCOUNTER → 2019-01-21 10:05 | Outpatient (BNVA) | payer MEDICARE, OTHER, SELFPAY | PROVIDERS: PCP Emergency Medicine; Referring Provider Emergency Medicine; Visit Provider Orthopaedic Surgery | DX: Z47.89 Encounter for other orthopedic aftercare (principal); M65.341 Trigger finger, right ring finger ==

== ENCOUNTER 2019-08-05 01:41 | Outpatient (CLI) | payer MEDICARE, OTHER, SELFPAY ==
--- NOTE | 2019-08-05 09:00 | DI.MAMMO_ITS ---
EXAM: MG MAMMO SCREENING CLINICAL HISTORY: screening Z12.39 TECHNIQUE: Bilateral full field digital CC and MLO mammographic images were obtained with 3D tomosyn thesis and utilizing computer aided detection (CAD). COMPARISON: Available for comparison. FINDINGS: Masses/Architectural Distortion: None seen. Microcalcifications: No suspicious pleomorphic-type are seen. Skin Thickening/Nipple Retraction: None. IMPRESSION: 1. No significant interval change with no specific features of malignancy noted. 2. Unless there is more urgent need, screening mammography is recommended, as per [employer] guidelines. ACR BI-RAD Category- 1 Negative Breast Density - Category B - Scattered areas of fibroglandular density A negative radiographic report should not delay biopsy if a dominant or clinically suspicious mass is present. Up to ten percent of cancers are not identified on mammography. A negative report may reinforce clinical impression. Adenosis and dense breasts may obscure an underlying neoplasm. False positive reports average 6 to 10%. Patient will receive a letter notifying them of these results.
[2019-08-05 09:55] LABS: Hemoglobin A1C 6.3 % (3.8-5.6)
[2019-08-05 10:25] LABS: Anion Gap 8.2 mmol/L (3-11); BUN 15 mg/dL (7-18); CO2 29.8 mmol/L (21.0-32.0); Calcium 8.9 mg/dL (8.5-10.1); Chloride 106 mmol/L (98-107); Estimated GFR 54.66 (mL/min/1.73m2); Glucose 138 mg/dL (74-106); Potassium 4.3 mmol/L (3.5-5.1); Sodium 144 mmol/L (136-145)
[2019-08-05 10:26] LABS: COMMENT (LAB VIEW ONLY) 123.88 mg/dL; Microalb ug/mg Crea 3.1 ug/mg Cr
== END 2019-08-05 02:01 ==
PROVIDERS: PCP Emergency Medicine; Visit Provider Emergency Medicine
DX: Z12.31 Encounter for screening mammogram for malignant neoplasm of breast (principal); E11.9 Type 2 diabetes mellitus without complications; I10 Essential (primary) hypertension
CPT/HCPCS: 36415; 77063; 77067; 80048; 82043; 82570; 83036

== ENCOUNTER → 2019-08-19 10:35 | Outpatient (BNVA) | payer MEDICARE, OTHER, SELFPAY | PROVIDERS: PCP Emergency Medicine; Referring Provider Emergency Medicine; Visit Provider Physical Therapy Assistant | DX: Z12.11 Encounter for screening for malignant neoplasm of colon (principal); I10 Essential (primary) hypertension ==

== ENCOUNTER 2019-09-08 12:35 | Outpatient (REF) | payer MEDICARE, OTHER, SELFPAY | END 2019-09-08 12:55 | LOC: LBN 12:35 | PROVIDERS: PCP Emergency Medicine; Visit Provider Physical Therapy Assistant | DX: R19.4 Change in bowel habit (principal) | CPT/HCPCS: 87177 ==

== ENCOUNTER 2019-10-14 08:59 | Outpatient (CLI) | payer MEDICARE, OTHER, SELFPAY ==
[2019-10-15 15:30] LABS: COVID-19 RT-PCR Result NEGATIVE (Negative)
== END 2019-10-14 09:19 ==
PROVIDERS: PCP Emergency Medicine; Visit Provider Surgery
DX: Z11.59 Encounter for screening for other viral diseases (principal); Z01.818 Encounter for other preprocedural examination
CPT/HCPCS: U0003

== ENCOUNTER 2019-10-18 06:17 | Day surgery (SDC) | payer MEDICARE, OTHER, SELFPAY ==
--- NOTE | 2019-10-18 06:39 | W.PREOPHP ---
Date of service: 10/18/19 Time of Service: 07:22 Assessment and Plan Assessment and plan (1) Encounter for screening colonoscopy: Status: Acute Assessment and plan: The patient is here for Colonoscopy pre-op. Her last screening was in 2007 and was unremarkable. She has no family history of colon cancer. She has noted bowel habit changes to include changes in her stool shape and character, describing white dots throughout her stool. Of note she reports her son was recently diagnosed with a parasite. -Discussed colonoscopy bowel prep as well as the procedure. Discussed possible complications of the procedure to include bleeding, pain, perforation, missed small lesion/polyp, sore throat, aspiration and adverse reaction to the medications. Questions were answered to patient?s satisfaction. No guarantees were implied or given. History of Present Illness Narrative: 69 y/o female with history of GERD, HTN, sleep apnea and Panic disorder presents for colonoscopy screening pre-op. Her last screening was in 2007, which was unremarkable. She denies a family history of colon cancer. She reports changes in bowel habits to include noting Lots of white dots throughout her stool and she has also noted a change in the shape of her stools. They are more thin. Of note she reports her son was recently treated for a parasite. Denies any anal itching or rash. Denies bloody or black tarry stools, abdominal pain, diarrhea or constipation. She denies constitutional symptoms. Denies use of marijuana or any other recreational or illegal drugs. She denies chest pain, palpitations, dyspnea or dyspnea with exertion. She denies prior history or family history of adverse reactions or complications with anesthesia. She has metal implanted in both her knees. Review of Systems Constitutional Constitutional: Denies fever(s) Cardiovascular Cardiovascular: Denies chest pain and Denies dyspnea Respiratory Respiratory: Denies cough and Denies dyspnea Gastrointestinal Gastrointestinal: Reports as per HPI and Reports system reviewed and no additional complaints, except as documented [facility] Medical History (Updated 10/18/19 @ 06:49 by Cindy Murphy MD) Borderline high cholesterol (Inactive) a. Treated with diet and exercise. Carpal tunnel syndrome (Resolved 01/07/13) Dysphagia (Inactive) Essential hypertension (Resolved 03/22/13) Gastroesophageal reflux disease (Resolved 02/21/16) GERD (gastroesophageal reflux disease) (Resolved) Glaucoma of both eyes (Resolved 02/21/16) Hypertension (Chronic) a. Well controlled with Chlorthalidone. Hypertension (Resolved) Insomnia (Resolved) a. Uses Sonata 1 to 2 times per month. Insomnia (Resolved 09/07/15) Knee pain (Resolved) 09/13/13; S/P RIGHT TOTAL KNEE ARTHROPLASTY Osteoarthritis of right knee (Resolved 09/13/13) S/P right TKA Panic disorder (Resolved) a. Takes Paroxetine. Pre-diabetes (Resolved) Sleep apnea (Resolved) a. She has a CPAP machine, but has not used it in a long time since she lost weight; she doesn't even know where the machine is presently. Trigger finger, right ring finger (Inactive) Trigger thumb of left hand (Resolved) Type 2 diabetes mellitus without complication, without long-term current use of insulin (Resolved 01/26/16) Pre-Diabetic Surgical History (Updated 10/18/19 @ 06:48 by Cindy Murphy MD) Abdominal hysterectomy (Resolved) approx 1983, not complete, still has ovaries.HE Arthroplasty of knee (Resolved) 09/13/13; TOTAL RIGHT H/O melanoma excision (Acute) History of cataract surgery (Chronic) History of colonoscopy (Chronic) History of esophagogastroduodenoscopy (EGD) (Resolved) 03/15/14; [facility] 09/04/[address] Alvarez at [facility], repeat as needed. mg History of reconstructive repair of rectocele (Acute) and cystocele Meniscectomy (Resolved 01/18/08) Left knee partial Right Knee 07/07/13.HE Replacement of total knee joint (Resolved) 07/2008 Left. Right S/P right inguinal hernia repair (Acute) Status post carpal tunnel release of both wrists (Acute) Family History Brother CAD (coronary artery disease) Neoplasm PROSTATE Grandfather Neoplasm LUNG Grandmother Neoplasm UTERINE Mother Stroke Social History Smoking/Tobacco Use Status: Never Alcohol Intake: current Alcohol Intake frequency: a few times a week Alcohol type: wine Drug use: Rarely Substance use type: marijuana Details: vape marijuana once/twice month Do you feel safe at home: Yes Do you feel safe in your relationship?: Yes Meds Home Medications and Allergies Home Medications Medication Instructions Recorded Confirmed Type timolol maleate 1 drp OPHTHALMIC BID drp 05/21/16 10/18/19 History mupirocin 2 % topical ointment 1 applic TP BID PRN gm 09/03/18 10/18/19 History spironolactone 25 mg tablet 25 mg PO DAILY #90 tab-cap 07/05/19 10/18/19 Rx amlodipine 5 mg tablet 5 mg PO DAILY #90 tab-cap 07/06/19 10/18/19 Rx pantoprazole 40 mg tablet,delayed 40 mg PO DAILY #90 tab 07/06/19 10/18/19 Rx release paroxetine HCl 40 mg tablet 40 mg PO DAILY #90 tab-cap 07/16/19 10/18/19 Rx atorvastatin 10 mg tablet 10 mg PO DAILY #90 tab 08/17/19 10/18/19 Rx Allergies Allergy/AdvReac Type Severity Reaction Status Date / Time losartan [Losartan] AdvReac Intermediate COUGH Verified 10/18/19 06:46 oxycodone AdvReac Intermediate NAUSEA Verified 10/18/19 06:46 lisinopril AdvReac Mild cough Verified 10/18/19 06:46 Exam [facility] Head: normocephalic and atraumatic Resp Effort & Inspection: normal respiratory effort Auscultation: clear to auscultation bilaterally Cardio Rate: regular rate Rhythm: regular rhythm Heart Sounds: no gallops, no murmurs and no rubs
[2019-10-18 06:48] VITALS: BP 152/69; PULSE 59; RESP 16; TEMP 36.6; O2SAT 99
--- NOTE | 2019-10-18 06:50 | W.PM.DSUDISC ---
Discharge Plan Disposition Patient Disposition: HOME Condition: Good Discharge Details Reason For Visit: SCREENING Attending Provider: Cindy Murphy Primary Care Provider: Adan Díaz Home Meds and New Rx's Prescriptions: Continued mupirocin 2 % ointment 1 applic TP BID PRNRF: 0 timolol maleate 5 ML gel forming solution 1 drp Ophthalmic BID RF: 0 spironolactone 25 mg tablet 25 mg PO DAILY Qty: 90 RF: 3 amlodipine 5 mg tablet 5 mg PO DAILY Qty: 90 RF: 3 pantoprazole [Protonix] 40 mg tablet,delayed release (DR/EC) 40 mg PO DAILY Qty: 90 RF: 11 paroxetine HCl 40 mg tablet 40 mg PO DAILY Qty: 90 RF: 3 atorvastatin 10 mg tablet 10 mg PO DAILY Qty: 90 RF: 3 Discontinued polyethylene glycol 3350 17 gram/dose powder 238 g PO ONCE Qty: 238 RF: 0 bisacodyl [Dulcolax (bisacodyl)] 5 mg tablet,delayed release (DR/EC) 5 mg PO ONCE Qty: 4 RF: 0 polyethylene glycol 3350 17 gram/dose powder 238 g PO ONCE Qty: 238 RF: 0 polyethylene glycol 3350 17 gram/dose powder 238 g PO ONCE Qty: 238 RF: 0 Discharge Instructions Additional Instructions: Findings: small hemorrhoids Follow up: as needed Please call if you develop: fevers >101.5 Nausea or Vomiting Abdominal pain that is not transient DAY SURGERY UNIT POST ENDOSCOPY INSTRUCTIONS 1. Because there will be medication in your system for the next 24 hours, you may feel a little sleepy. Your coordination will be affected. Therefore: a. Do not drive or operate dangerous equipment for 24 hours. b. Do not drink alcohol beverages for 24 hours (not even beer). c. Plan to go home and rest for the day. 2. Generally there are no restrictions on your activity after a day or so has gone by, but you may feel a bit fatigued for a few days. 3 After you arrive home you may have a light meal and return to a normal diet as you can tolerate it without feeling sick to your stomach. 4. After surgery, you may feel pain or discomfort. This should be only transient, but if it persists please contact your doctor. 5. If there are any questions regarding the findings of your procedure, please feel free to contact your doctor. 6. If you are unable to contact your doctor with a problem, contact the hospital at [phone]. 7. Continue all your regular medications unless directed otherwise. I understand the above instructions and have no questions. Signature of Patient or Responsible Adult Escort Date/Time Name of Responsible Adult Escort Signature of Nurse Date/Time Activity:: Activity as Tolerated Diet:: high fiber diet Discharge Orders Discharge Orders: Discharge Order (Routine); Ordered 10/18/19 Ordered By: Cindy Murphy DS: Diagnosis Discharge Diagnosis (1) Encounter for screening colonoscopy: Status: Acute
--- NOTE | 2019-10-18 06:51 | COLE_ITS ---
Date of service: 10/18/19 Time of Service: 07:36 Colonoscopy Report Date of procedure: 10/18/19 Pre-op diagnosis general: Colon Cancer screening Post-op diagnosis procedure note: same Procedure: Colonoscopy Surgeon: Cindy Murphy Anesthesia proc note operative: other (General/ ASA 2/Malissa Morel, TY) Estimated blood loss (mL): 0 Pathology: none sent Complications: None Disposition: same day Indications: Mrs. Lee is a 69 year old female seen in the office for a screening colonoscopy. Risks, benefits and complications have been reviewed. Complications include but are not limited to bleeding, pain, perforation, missed small lesion/polyp, sore throat, aspiration and adverse reaction to the medications. Questions were entertained and answered to their satisfaction and they wished to proceed. No guarantees were given or implied. Prep: Miralax/Dulcolax Procedure Start Time: :36 Procedure End Time: 08:01 Retraction Time: 15 minutes Findings: Normal colon Grade 1 internal hemorrhoids Procedure Description: After informed consent was obtained the patient was taken to the procedure room and placed in a left decubitous position. Monitors were applied and a time out was done. The patients name, date of , pro cedure, allergies to medications and metal in their body was reviewed. The patient was then sedated. Once sedated and comfortable a rectal exam was done. External exam was normal. Internal exam revealed a normal sphincter tone and no palpable masses. The scope was then introduced and retro-flexed. Grade 1 internal hemorrhoids were identified. There were no polyps or masses in the rectum on retro-flexion. The scope was then advanced to the cecum without difficulty. The TI and appendiceal orifice were identified. The prep was good. The scope was then slowly retracted over 15 minutes back into the rectum. There were no polyps and no diverticula noted. The scope was removed and the patient was woken up and taken back to Same day surgery in stable condition. The patient tolerated the procedure well and there were no immediate complications. Follow up: The patient should follow up as needed if they develop changes in bowel habits or other new gastrointestinal complaints.
[2019-10-18] MEDS: Lactated Ringers 1,000 ML 80 ML IV (07:05)
[2019-10-18 08:35] VITALS: BP 114/54; PULSE 54; RESP 18; TEMP 36.6; O2SAT 100
== END 2019-10-18 09:05 | disposition home or self-care (01) ==
PROVIDERS: PCP Emergency Medicine; Visit Provider Surgery
PROC: 0DJD8ZZ Inspection of Lower Intestinal Tract, Via Natural or Artificial Opening Endoscopic (ICD-10-PCS; CPT 45378; principal; 2019-10-18 07:30)
DX: Z12.11 Encounter for screening for malignant neoplasm of colon (principal); R19.4 Change in bowel habit; K21.9 Gastro-esophageal reflux disease without esophagitis; I10 Essential (primary) hypertension; K64.0 First degree hemorrhoids
CPT/HCPCS: G0121; NC

== ENCOUNTER 2020-04-12 11:46 | Outpatient (CLI) | payer MEDICARE, OTHER, SELFPAY ==
--- NOTE | 2020-04-12 11:30 | DI.RAD_ITS ---
EXAM: XR SHOULDER LT COMPLETE 2+V CLINICAL HISTORY: pain. TECHNIQUE: 2D digital imaging was performed. COMPARISON: No exams were available for comparison FINDINGS: BONES: No acute fracture is present. No bony destructive lesion is seen. There is a small spur at the lateral aspect of the acromion. JOINTS: Mild hypertrophic changes are seen at the acromioclavicular joint. Mild degenerative changes are seen at the glenohumeral joint. SOFT TISSUE: Normal. IMPRESSION: Mild degenerative changes of the left shoulder. DATA REPOSITORY: RADIATION DOSE DELIVERED:
== END 2020-04-12 12:06 ==
PROVIDERS: PCP Emergency Medicine; Referring Provider Emergency Medicine; Visit Provider Orthopaedic Surgery
DX: M19.012 Primary osteoarthritis, left shoulder (principal); M25.512 Pain in left shoulder; M75.82 Other shoulder lesions, left shoulder; I10 Essential (primary) hypertension; E11.9 Type 2 diabetes mellitus without complications
CPT/HCPCS: 20610; 99213; 73030; J1040

== ENCOUNTER 2020-07-07 19:11 | Outpatient (REF) | payer MEDICARE, OTHER, SELFPAY ==
[2020-07-07 13:43] LABS: Hemoglobin A1C 5.9 % (<5.7)
[2020-07-07 13:50] LABS: Anion Gap 11.5 mmol/L (3-11); BUN 12 mg/dL (7-18); CO2 27.5 mmol/L (21.0-32.0); Calcium 8.9 mg/dL (8.5-10.1); Calculated LDL 77 mg/dL (<100); Chloride 105 mmol/L (98-107); Cholesterol 134 mg/dL (<200); Estimated GFR 54.66 (mL/min/1.73m2); Glucose 120 mg/dL (74-106); HDL Cholesterol 39 mg/dL (40-60); Potassium 4.1 mmol/L (3.5-5.1); Sodium 144 mmol/L (136-145); Triglyceride 92 mg/dL (<150)
== END 2020-07-07 19:12 | disposition home or self-care (01) ==
LOC: LBN 19:11
PROVIDERS: PCP Emergency Medicine; Visit Provider Emergency Medicine
DX: I10 Essential (primary) hypertension (principal); E11.9 Type 2 diabetes mellitus without complications
CPT/HCPCS: 80048; 80061; 83036

== ENCOUNTER 2020-10-24 12:49 | Outpatient (REF) | payer MEDICARE, OTHER, SELFPAY ==
[2020-10-24 18:15] LABS: Calculated LDL 175 mg/dL (<100); Cholesterol 245 mg/dL (<200); HDL Cholesterol 47 mg/dL (40-60); Triglyceride 117 mg/dL (<150)
== END 2020-10-24 12:50 | disposition home or self-care (01) ==
LOC: LBN 12:49
PROVIDERS: PCP Emergency Medicine; Visit Provider Emergency Medicine
DX: E11.9 Type 2 diabetes mellitus without complications (principal); I10 Essential (primary) hypertension
CPT/HCPCS: 80061; 83036